=== PATIENT | female | born 1975 | race Caucasian/White ===

== ENCOUNTER → 2017-12-06 08:17 | Outpatient (CLI) | payer BC, SELFPAY ==
--- NOTE | 2017-12-06 08:21 | MM_ITS ---
MM Dig screening mamm BI w/CAD CAD Screening COMPARISON: Digital mammograms 12/01/2015 and 12/03/2016 INDICATION: There is a history of breast cancer patient maternal grandmother. TECHNIQUE: Standard CC and MLO images were obtained. R2 CAD reviewed. FINDINGS: Moderate diffuse fiber glandular densities are seen throughout both breasts and the findings are bilateral and symmetrical. However there is a possible developing asymmetric density deep within the left breast inner quadrant. Recommend the patient return for attempt at spot compression views and 90 degrees lateral view and ultrasound will be necessary as well for additional evaluation. There are few benign-appearing calcifications in each breast. There are couple stable benign-appearing densities in the left breast. IMPRESSION: Possible developing density left breast BI-RADS Category: 0 Need Additional Imaging Evaluation RECOMMENDED FOLLOW-UP: IMM - IMMEDIATE FOLLOW-UP RECOMMENDED (A letter has been sent to the patient regarding results of the study.)
== END ==
PROVIDERS: Family Provider Family Medicine; PCP Family Medicine; Visit Provider Obstetrics & Gynecology
DX: Z12.31 Encounter for screening mammogram for malignant neoplasm of breast (principal)
CPT/HCPCS: 77067

== ENCOUNTER → 2017-12-15 12:46 | Outpatient (CLI) | payer BC, SELFPAY ==
--- NOTE | 2017-12-15 14:02 | US_ITS ---
US breast LT complete MM Dig mamm DX unilat LT CAD INDICATION: Follow-up abnormal mammogram ORDERING PHYSICIAN: Shyam White MD PATIENT AGE: 42 years COMPARISON: 12/03/2016 and 12/06/2017 TECHNIQUE: Spot compression views and straight ML views of left breast ultrasound performed FINDINGS: The mammographic abnormality was D within the medial aspect of the left breast. Spot compression views do appear however this region. No discrete mass apparent. On the MLO view there is a small nodule deep in the left breast overlying the pectoralis muscle measuring 4 mm probably present on the previous exam. There is a small regular shaped density on the edge of the film in the deep aspect of the breast just inferior to this area. This may be present dating back to the sixth 6 exam and appears benign. Left breast ultrasound: At 2:00 there is an ill-defined 12 x 6 mm area of slight increased echogenicity possibly due to a lipoma. An additional small area of increased echogenicity is present at 8:00 measuring 4 mm. No suspicious nodules are evident. IMPRESSION: Probably benign mammographic abnormalities. Ultrasound shows a 12 mm slightly hyperechoic nodule 2:00 and probably does not correspond to the mammographic abnormality and may represent a lipoma. BI-RADS Category: 3 Benign Finding Short Term Follow-up RECOMMENDED FOLLOW-UP: 3M - 3 MONTH FOLLOWUP Recommend 3 month sonographic and possibly mammographic follow-up (A letter has been sent to the patient regarding results of the study.)
== END ==
PROVIDERS: Family Provider Family Medicine; PCP Family Medicine; Visit Provider Obstetrics & Gynecology
DX: R92.8 Other abnormal and inconclusive findings on diagnostic imaging of breast (principal)
CPT/HCPCS: 76641; 77065

== ENCOUNTER → 2018-03-08 14:14 | Outpatient (CLI) | payer BC, SELFPAY ==
--- NOTE | 2018-03-08 14:15 | US_ITS ---
MM Dig mamm DX unilat LT CAD, US breast LT complete INDICATION: Follow-up abnormal mammogram ORDERING PHYSICIAN: Shyam White MD PATIENT AGE: 42 years COMPARISON: None TECHNIQUE: Left mammogram along with left breast ultrasound FINDINGS: In the deep aspect of the left breast there is a benign-appearing nodule at 5 mm and may be due to a small lymph node with well circumscribed margins. There is some asymmetric density in the central aspect of the left breast appears to compress out as fibroglandular tissue.. There is a benign-appearing 4 mm nodule in the upper deep aspect of left breast unchanged Left breast ultrasound: 4 mm hyperechoic nodule at 8:00 and may be due to small lipoma. There is an isoechoic nodule at 2:00 measuring 9 x 10 x 5 mm and may also be due to a lipoma. There is enhanced through transmission of sound. This could also be due to a fibroadenoma. No malignant-appearing lesions are evident with no significant change. IMPRESSION: Overall stable appearance of the breasts. No change in the deep benign-appearing nodule of the left breast. A probably benign isoechoic to slightly hyperechoic nodule is once again noted at 2:00 and may be due to lipoma or fibroadenoma BI-RADS Category: 3 Probably Benign Finding Short Term Follow-up RECOMMENDED FOLLOW-UP: 6M - 6 MONTH FOLLOW-UP (A letter has been sent to the patient regarding results of the study.)
== END ==
PROVIDERS: PCP Obstetrics & Gynecology; Visit Provider Obstetrics & Gynecology
DX: R92.8 Other abnormal and inconclusive findings on diagnostic imaging of breast (principal)
CPT/HCPCS: 76641; 77065

== ENCOUNTER → 2018-05-12 13:11 | Outpatient (CLI) | payer BC, SELFPAY | PROVIDERS: Visit Provider Nurse Practitioner Family | DX: J02.9 Acute pharyngitis, unspecified (principal) ==

== ENCOUNTER → 2018-07-24 16:01 | Outpatient (CLI) | payer BC, SELFPAY ==
--- NOTE | 2018-07-24 16:14 | XR_ITS ---
XR scapula RT Ordering Physician: Sandra Celaya Patient Age: 42 years: Female HISTORY: ITS.REASON: RT SHOULDER PAIN Injury to the right shoulder with pain and swelling. TECHNIQUE: Right scapula 2 views COMPARISON :Of the study reviewed in conjunction with the right shoulder from today & FINDINGS The right scapula is intact with no fracture evident. Normal appearance to right scapula. The Y view and the second rather axillary view of the right labeled as internal rotation right shoulder reveal the humeral head to be intact AC joint right scapula right clavicle intact. Right lung clear underlying right ribs intact. IMPRESSION: Negative right scapula. Negative additional views right shoulder.
--- NOTE | 2018-07-24 16:14 | XR_ITS ---
XR shoulder RT min 2V Ordering Physician: Sandra Celaya Patient Age: 42 years: Female HISTORY: ITS.REASON: RT SHOULDER PAIN Injury to right shoulder with pain and swelling TECHNIQUE: 3 view right shoulder COMPARISON :] Scapula From today FINDINGS . No fracture nor dislocation. The humeral head and neck are intact. The glenohumeral relationships appear normal. Upper normal width of the AC joint on one of the view but overall AC joint appears satisfactory. [place] of right lung and upper right ribs unremarkable. Right scapula appears intact on this study as well as subsequent dedicated additional study for scapula. IMPRESSION: Right shoulder intact. No acute findings. Normal relationships Views of scapula unremarkable.
== END ==
PROVIDERS: PCP Nurse Practitioner Family; Visit Provider Nurse Practitioner Family
DX: M25.511 Pain in right shoulder (principal)
CPT/HCPCS: 73010; 73030

== ENCOUNTER → 2018-09-15 15:02 | Outpatient (CLI) | payer BC, SELFPAY ==
--- NOTE | 2018-09-15 15:06 | MM_ITS ---
MM Dig mamm DX unilat LT CAD, US breast LT complete INDICATION: 6 month follow-up abnormal mammogram ORDERING PHYSICIAN: Shyam White MD PATIENT AGE: 43 years COMPARISON: 03/08/2018, 12/15/2017, 12/06/2017 TECHNIQUE: Standard images performed with spot compression views and left breast ultrasound FINDINGS: There is average to dense fibroglandular tissue. A marker is placed along the medial aspect of left breast corresponding to a skin lesion with some increased density at that area. No malignant appearing mass or malignant appearing microcalcification is evident. Asymmetric density in the medial aspect of left breast is not redemonstrated on the cc view. Benign-appearing nodules present in this region on the MLO view and may be due to vascular overlap. Left breast ultrasound: At 2:00 there is a slightly hyperechoic nodule at 9 mm and could be due to a lipoma. Hyperechoic nodule noted at 8:00 measuring 5 mm unchanged and may be due to a lipoma.. No suspicious nodules are evident. Small nodes are present in the axilla. IMPRESSION: Benign findings, no significant change with no evidence of malignancy. Suggest 6 month mammographic and sonographic follow-up. BI-RADS Category: 2 Benign Finding(s) RECOMMENDED FOLLOW-UP: 6M - 6 MONTH FOLLOW-UP (A letter has been sent to the patient regarding results of the study.)
== END ==
PROVIDERS: PCP Family Medicine; Visit Provider Obstetrics & Gynecology
DX: R92.8 Other abnormal and inconclusive findings on diagnostic imaging of breast (principal)
CPT/HCPCS: 76641; 77065

== ENCOUNTER → 2019-04-04 14:37 | Outpatient (CLI) | payer BC, SELFPAY ==
--- NOTE | 2019-04-04 14:39 | MM_ITS ---
PROCEDURE: MM DIG MAMM BI DX W/CAD CLINICAL INDICATION: abnormal mammogram Follow-up abnormal mammogram COMPARISON: [facility] DIGITAL MAMM-SCREEN BILATERAL from 09/22/2010 [facility] DIG MAMM-SCREEN RICHARD from 12/01/2015 [facility] DIG MAMM-SCREEN RICHARD W/CAD from 12/03/2016 [facility] MM Dig screening mamm BI w/CAD from 12/06/2017 DXLT MM Dig mamm DX unilat LT CAD from 12/15/2017 DXLT MM Dig mamm DX unilat LT CAD from 03/08/2018 BREASTLT US breast LT complete from 09/15/2018 DXLT MM Dig mamm DX unilat LT CAD from 09/15/2018 US BREAST LT COMPLETE from 04/04/2019 TECHNIQUE: Standard CC and MLO images were obtained. R2 CAD reviewed. FINDINGS: There is dense fibroglandular tissue. This could obscure underlying breast lesions. Therefore, correlation with physical exam is above most importance. Right breast: No discrete mass or malignant-appearing microcalcification.. Benign-appearing calcifications. Left breast: Benign-appearing nodular opacity in the axillary region which may be due to small lymph node. No malignant appearing mass or malignant-appearing microcalcification. There asymmetry in the lateral aspect of the left breast. This may only be due to fibroglandular tissue but is more prominent than on the previous study therefore, would recommend the patient return for spot view of this area at no additional charge as well as an XCC view Left breast ultrasound: In the outer aspect at 2 o'clock there is a slightly hypoechoic nodular area at 8 mm wider than tall and may be due to fibroglandular tissue as this did appear to elongate. No malignant appearing mass or malignant-appearing microcalcification. Small area of increased echogenicity is present at 8 o'clock is well at 4 mm and may be due to small lipoma. Small nodes present in the axilla. IMPRESSION: Findings are probably benign. Suggest the patient return at no additional charge for spot views of the lateral left breast on CC view and for an XCC view due to the area of asymmetry. Addended BI-RADS will be given at that time. BI-RAD Category: 0 Need Additional Imaging Evaluation FOLLOW-UP: IMM Immediate Follow-up Recommended (A letter has been sent to the patient regarding results of the study.) Dictated by: Morgan Reyez MD 04/10/2019 10:20 Electronically signed by Morgan Reyez MD in [place] 04/10/2019 10:20
== END ==
PROVIDERS: PCP Family Medicine; Visit Provider Obstetrics & Gynecology
DX: R92.8 Other abnormal and inconclusive findings on diagnostic imaging of breast (principal)
CPT/HCPCS: 76641; 77066

== ENCOUNTER → 2019-05-04 15:07 | Outpatient (CLI) | payer BC, SELFPAY | PROVIDERS: PCP Family Medicine; Visit Provider Obstetrics & Gynecology | DX: R92.8 Other abnormal and inconclusive findings on diagnostic imaging of breast (principal) ==

== ENCOUNTER → 2020-04-11 14:46 | Outpatient (CLI) | payer BC, SELFPAY ==
--- NOTE | 2020-04-11 14:46 | MM_ITS ---
PROCEDURE: MM DIG SCREENING MAMM BI W/CAD Digital Breast Tomosynthesis Included CLINICAL INDICATION: Routine Screening Mammogram There is a history of breast cancer in the patient's maternal grandmother. The patient currently is on estrogen. COMPARISON: MG DXLT MM Dig mamm DX unilat LT CAD from 12/15/2017 MG DXLT MM Dig mamm DX unilat LT CAD from 03/08/2018 MG DXLT MM Dig mamm DX unilat LT CAD from 09/15/2018 MG MM DIG MAMM BI DX W/CAD from 04/04/2019 TECHNIQUE: Standard CC and MLO images and 3D Tomosynthesis was obtained. R2 CAD reviewed. FINDINGS: Mild to moderate diffuse fibroglandular densities are seen in both breast. There is a mole marker left breast. There are few benign-appearing microcalcifications in each breast. There has been some mild fatty involution of the breast parenchyma since the previous studies. There is no suspicious lesion and no suspicious microcalcifications. IMPRESSION: Mild to moderate breast density with no suspicious lesions seen BI-RAD Category: 2 Benign Finding(s) FOLLOW-UP: 1YR 1 Year Follow-up (A letter has been sent to the patient regarding results of the study.) Dictated by: Dr. Ismael Felder MD 04/15/2020 12:27 Dr. Ismael Felder MD in [place] 04/15/2020 12:27
== END ==
PROVIDERS: PCP Family Medicine; Visit Provider Obstetrics & Gynecology
DX: Z12.31 Encounter for screening mammogram for malignant neoplasm of breast (principal)
CPT/HCPCS: 77063; 77067

== ENCOUNTER → 2020-04-26 11:30 | Outpatient (CLI) | payer BC, SELFPAY ==
[2020-04-27 09:20] LABS: Covid-19 Nasal PCR Sendout UK Not Detected
== END ==
PROVIDERS: PCP Family Medicine; Visit Provider Family Medicine
DX: Z03.818 Encounter for observation for suspected exposure to other biological agents ruled out (principal)
CPT/HCPCS: U0003

== ENCOUNTER 2020-05-22 08:59 | Emergency (ER) | payer BC, SELFPAY ==
[2020-05-22 09:05] VITALS: BP 129/74; PULSE 72; RESP 18; TEMP 37; O2SAT 99; BMI 25.4
--- NOTE | 2020-05-22 09:28 | HMH.EDUTC ---
[facility] [place] Clinical Impression: Close exposure to COVID-19 virus Disposition: Home, Self-Care Condition on Discharge: Good Instructions: DI for COVID-19 (Suspected or Confirmed ), COVID-19 Viral Test, Preventing the Spread of Coronavirus Discharge Instructions, COVID-19: Testing and Tracing Additional Instructions: *Monitor Temp, Over the counter Motrin or Tylenol as directed/as needed Tylenol every 4 hours and Motrin every 6 hours (as long as your family doctor has told you that you can take it) for fever or pain. and straight to ER if unable to lower temp less than 101.0 after medication given *Warm salt water gargles may help to soothe the throat *Throat Lozenges *Warm fluids like tea with honey may help to soothe the throat *Sleep elevated *Humidifier/Vaporizer *Flonase 2 sprays in each nostril daily but be aware that it may take 2-3 days before you notice improvement Follow up IMMEDIATELY for new or worsening symptoms or no Noticeable improvement over the next 48-72 hours. 911 for difficulty breathing or swallowing You were tested for today for COVID19 your test result should be back in the next 24-48 hours, you may call to the [facility] to see if your test results are back in the next 48 hours [phone] [facility] hours are 9am-9pm You was given a handout with instructions for Self Quarantine and Self isolation for while you wait on test results and what to do if they are positive If you are positive the Health Dept will be contacting you also Prescriptions: Fluticasone Propionate [Flonase 50mcg nasal spray 16gm] 1 spr NS DAILY #1 bottle Transmission Status: Pending to [facility] Promethazine HCl [Phenergan 12.5mg tablet] 12.5 mg PO Q6H PRN #6 tab PRN Reason: Nausea Transmission Status: Pending to [facility] Referrals: Serge Dhillon MD [Primary Care Provider] - As needed Forms: Work/School Release Time of Disposition: 09:37 Medical Decision Making - Gold Inquiry Pt receiving controlled substance: No Gold was queried for this patient: No Vital Signs: 05/22/20 09:05 Temperature 98.6 F Temperature Source Oral Pulse Rate [Right Brachial] 72 Respiratory Rate 18 Blood Pressure [Right Arm] 129/74 Blood Pressure Mean [Right Arm] 92 Blood Pressure Source [Right Arm] Automatic Cuff Blood Pressure Position [Right Arm] Sitting 02 Sat by Pulse Oximetry 99 Oxygen Delivery Method Room Air Orders (Tests/Meds): ORDERS Category Date Time Status Covid-19 Nasal PCR ([facility]) Routine Lab 05/22/20 09:08 Ordered [facility] UTC HPI - General Stated complaint: exposure and symtoms/covid Time Seen by Provider: 05/22/20 09:30 Mode of Arrival: Ambulatory Source of Information: Patient Limitations: No Limitations Description of Symptoms (Recalled from Triage Doc. by RN): PATIENT REQUESTING COVID TEST D/T EXPOSURE LAST TUESDAY. C/O RUNNY NOSE, HEADACHE, DIARRHEA, AND FATIGUE SINCE YESTERDAY HEENT Symptoms (Recalled from RN notes): Yes Resp Symptoms (Recalled from RN notes): No Skin Symptoms (Recalled from RN notes): No MS Symptoms (Recalled from RN notes): No Functional Status (Recalled from RN notes): WNL - History of Present Illness Provider Complaint: Patient states that she was exposed to COVID from coworker on Tue and coworker tested positive on Tuesday States that around Tuesday she started having runny nose, body aches and not feeling well then yesterday she had upset stomach headache and started having diarrhea. States that today she is still feeling bad and having some nausea - Related Data Home Medications Medication Instructions Recorded Confirmed montelukast 10 mg tablet 10 mg PO QPM 10/21/17 04/28/19 Previous Rx's Medication Instructions Recorded estradiol 1 mg tablet 1 mg PO DAILY 30 Days #90 tab 12/13/19 Fluticasone Propionate [Flonase 1 spr NS DAILY #1 bottle 05/22/20 50mcg nasal spray 16gm] Promethazine HCl [Phenergan 12.5mg 12.5 mg PO Q6H PRN #6 tab 05/22/20 tablet
[2020-05-22 09:40] VITALS: BP 129/74; PULSE 72; RESP 18; TEMP 37; O2SAT 99
== END 2020-05-22 09:44 | disposition home or self-care (01) ==
PROVIDERS: Emergency Provider Nurse Practitioner; PCP Family Medicine
DX: Z20.828 Contact with and (suspected) exposure to other viral communicable diseases (principal); Z87.442 Personal history of urinary calculi; Z91.040 Latex allergy status
CPT/HCPCS: 99201; U0003

== ENCOUNTER → 2020-09-10 10:34 | Outpatient (CLI) | payer BC, SELFPAY ==
--- NOTE | 2020-09-10 10:38 | XR_ITS ---
PROCEDURE: XR FOOT RT MIN 3V CLINICAL INDICATION: RT FOOT PAIN, FLAT FOOT(PES PLANUS)(AQUIRED), RT FOOT COMPARISON: No exams were available for comparison FINDINGS: No fracture or dislocation. No lytic or blastic change. There is normal mineralization. The joint spaces are well-preserved. No significant degenerative/arthritic changes. No erosive changes evident. Other findings:None. IMPRESSION: No acute findings. Dictated by: Mrogan Reyez MD 09/10/2020 15:22 Morgan Reyez MD in [place] 09/10/2020 15:22
== END ==
PROVIDERS: PCP Nurse Practitioner Family; Visit Provider Nurse Practitioner Family
DX: M79.671 Pain in right foot (principal); M21.41 Flat foot [pes planus] (acquired), right foot
CPT/HCPCS: 73630

== ENCOUNTER → 2021-05-08 13:13 | Outpatient (CLI) | payer BC, SELFPAY ==
--- NOTE | 2021-05-08 13:14 | MM_ITS ---
PROCEDURE INFORMATION: Exam: MG Bilateral Screening 3D Mammography Exam date and time: 05/08/2021 1:14 PM Age: 45 years old Clinical indication: Encounter for screening mammogram for malignant neoplasm of breast TECHNIQUE: Imaging protocol: Bilateral screening tomosynthesis and 2D mammography including computer-aided detection (CAD) when performed. COMPARISON: 1. MG MM DIG SCREENING MAMM BI W/CAD 04/11/2020 3:01 PM 2. MG MM DIG MAMM BI DX W/CAD 04/04/2019 2:54 PM FINDINGS: MAMMOGRAPHY: Breast composition: The breast tissue is composed of scattered areas of fibroglandular density. Mass: None. Architectural distortion: None. Calcifications: No suspicious calcifications. Asymmetric density: None. Skin thickening: None. Axillary adenopathy: None. IMPRESSION: No mammographic evidence of malignancy. Annual screening is recommended unless otherwise clinically indicated. ASSESSMENT: BI-RADS Category 1: Negative
== END ==
PROVIDERS: PCP Family Medicine; Visit Provider Obstetrics & Gynecology
DX: Z12.31 Encounter for screening mammogram for malignant neoplasm of breast (principal)
CPT/HCPCS: 77063; 77067

== ENCOUNTER → 2021-06-03 15:36 | Outpatient (CLI) | payer BC, SELFPAY | PROVIDERS: Visit Provider Nurse Practitioner | DX: U07.1 COVID-19 (principal) | CPT/HCPCS: C9803; U0003; U0005 ==

== ENCOUNTER 2021-06-23 09:22 | Emergency (ER) | payer BC, SELFPAY ==
[2021-06-23 09:30] VITALS: BP 114/69; PULSE 84; RESP 18; TEMP 36.6; O2SAT 98; BMI 26.7
--- NOTE | 2021-06-23 09:59 | HMH.EDUTC ---
[facility] – [place] Disposition Clinical Impression: Sinusitis Qualifiers: Sinusitis location: unspecified location Chronicity: unspecified Qualified Code(s): J32.9 - Chronic sinusitis, unspecified Nausea & vomiting Qualifiers: Vomiting type: unspecified Qualified Code(s): R11.2 - Nausea with vomiting, unspecified Disposition: Home, Self-Care Condition on Discharge: Good Instructions: Sinusitis, DI for Sinusitis, DI for Nausea -- Adult, Nausea and Vomiting-Adult Additional Instructions: *Monitor Temp, Over the counter Motrin or Tylenol as directed/as needed Tylenol every 4 hours and Motrin every 6 hours (as long as your family doctor has told you that you can take it) for fever or pain. and straight to ER if unable to lower temp less than 101.0 after medication given *Warm salt water gargles may help to soothe the throat *Throat Lozenges *Warm fluids like tea with honey may help to soothe the throat *Sleep elevated *Humidifier/Vaporizer Take medication as prescribed Return if needed Follow up IMMEDIATELY for new or worsening symptoms or no Noticeable improvement over the next 48-72 hours. 911 for difficulty breathing or swallowing Prescriptions: Doxycycline Monohydrate [Doxycycline [place] 100mg Tab] 100 mg PO BID 7 Days #14 tab Transmission Status: Received by [facility] methylPREDNISolone [Medrol 4mg tab] 4 mg PO DIRECTED #21 tab Transmission Status: Received by [facility] Ondansetron [Zofran 4mg ODT] 4 mg PO TIDP PRN #9 tab PRN Reason: Nausea Transmission Status: Received by [facility] Referrals: Serge Dhillon MD [Primary Care Provider] - As needed Time of Disposition: 10:23 Medical Decision Making - Gold Inquiry Pt receiving controlled substance: No Gold was queried for this patient: No Vital Signs: 06/23/21 09:30 Temperature 97.8 F Temperature Source Oral Pulse Rate [Right Brachial] 84 Respiratory Rate 18 Blood Pressure [Right Arm] 114/69 Blood Pressure Mean [Right Arm] 84 Blood Pressure Source [Right Arm] Automatic Cuff Blood Pressure Position [Right Arm] Sitting 02 Sat by Pulse Oximetry 98 Oxygen Delivery Method Room Air Orders (Tests/Meds): ED MEDICATIONS Discontinued Medications Generic Name Dose Route Start Last Admin Trade Name Freq PRN Reason Stop Dose Admin Ondansetron HCl 4 mg 06/23/21 10:09 06/23/21 10:11 Ondansetron 4mg Odt SL 06/23/21 10:10 4 mg ONCE ONE Administration Medical Decision Narrative: Patient states that heriberto feels much better after medication for nausea [facility] [place] HPI - General Stated complaint: sore throat,vomiting,diarrhea Time Seen by Provider: 06/23/21 09:59 Mode of Arrival: Ambulatory Source of Information: Patient Limitations: No Limitations Description of Symptoms (Recalled from Triage Doc. by RN): PATIENT C/O HEADACHE, VOMITING, STOMACH PAIN, SORE THROAT, SINUS DRAINAGE, FATIGUE, AND POPPING IN EAR SINCE TUESDAY NIGHT. HAD COVID ON 06/03 HEENT Symptoms (Recalled from RN notes): Yes Resp Symptoms (Recalled from RN notes): No Skin Symptoms (Recalled from RN notes): No MS Symptoms (Recalled from RN notes): No Functional Status (Recalled from RN notes): WNL - History of Present Illness Provider Complaint: Patient state that she had COVID around the end of May States that she was doing ok but she has been having sinus pain and pressure like feeling behind her eyes for over a week State that last night she started having nausea and vomiting and felt like her stomach was upset and churning States that this morning she was still having nausea and feeling of fullness in her sinuses and ears so she came in - Related Data Home Medications Medication Instructions Recorded Confirmed montelukast 10 mg tablet 10 mg PO QPM 10/21/17 06/23/21 Sertraline HCl [Zoloft] 50 mg PO DAILY 06/23/21 06/23/21 estradioL [Estradiol] 1 mg PO DAILY 06/23/21 06/23/21 Previous Rx's Medication Instructions Recorded Doxycycli
[2021-06-23 10:29] VITALS: BP 114/69; PULSE 84; RESP 18; TEMP 36.6; O2SAT 98
[2021-06-23 10:29] LABS: Strep Scrn Group A (Rapid) Negative (Negative)
== END 2021-06-23 10:36 | disposition home or self-care (01) ==
PROVIDERS: Emergency Provider Nurse Practitioner; PCP Family Medicine
DX: J32.9 Chronic sinusitis, unspecified (principal)
CPT/HCPCS: 87430; 99202; G0463

== ENCOUNTER 2021-08-02 10:04 | Emergency (ER) | payer BC, SELFPAY ==
[2021-08-02 10:35] VITALS: BP 113/57; PULSE 76; RESP 19; TEMP 36.8; O2SAT 97; BMI 26.7
[2021-08-02 10:43] LABS: UTC Strep Screen (Rapid) Positive (Negative)
--- NOTE | 2021-08-02 12:13 | HMH.EDUTC ---
[facility] [place]ression: Strep throat Disposition: Home, Self-Care Condition on Discharge: Good Instructions: Strep Throat, DI for Strep Throat Additional Instructions: Drink plenty of fluids. Take tylenol or ibuprofen for pain or fever. Take the medications as directed. Follow up with your regular doctor. GO TO THE ER FOR ANY WORSENING SYMPTOMS Throw your tooth brush away and get a new one. Prescriptions: Ondansetron [Zofran 4mg ODT] 4 mg PO Q8HP PRN #20 tab PRN Reason: Nausea Transmission Status: Received by [facility] Amoxicillin [Amoxicillin 500mg Tab] 500 mg PO TID 10 Days #30 tab Transmission Status: Received by [facility] methylPREDNISolone [Medrol] 4 mg PO DIRECTED 6 Days #21 packet Transmission Status: Received by [facility] Referrals: Serge Dhillon MD [Primary Care Provider] - Forms: Work/School Release Time of Disposition: 12:25 Medical Decision Making - Medical Records Medical records reviewed: No: I reviewed the patient's medical records. - Gold Inquiry Pt receiving controlled substance: No Vital Signs: 08/02/21 10:35 08/02/21 12:31 Temperature 98.2 F 98.2 F Temperature Source Oral Pulse Rate 76 Pulse Rate [Left] 76 Respiratory Rate 19 19 Blood Pressure 113/57 L Blood Pressure [Right Arm] 113/57 L Blood Pressure Mean [Right Arm] 75 02 Sat by Pulse Oximetry 97 - Lab Data Lab Results 08/02/21 10:37: Strep Scn Rapid Clinic Positive [facility] [place] - General Stated complaint: ear/throat pain Time Seen by Provider: 08/02/21 12:13 Mode of Arrival: Ambulatory Source of Information: Patient Limitations: No Limitations Description of Symptoms (Recalled from Triage Doc. by RN): pt c/o bilateral ear aches and a sore throat x2 days. HEENT Symptoms (Recalled from RN notes): Yes Resp Symptoms (Recalled from RN notes): No Skin Symptoms (Recalled from RN notes): No MS Symptoms (Recalled from RN notes): No Functional Status (Recalled from RN notes): wnl - History of Present Illness Provider Complaint: She states that she has had a sore throat and right ear pain for the past 2 days. - Related Data Home Medications Medication Instructions Recorded Confirmed montelukast 10 mg tablet 10 mg PO QPM 10/21/17 06/23/21 Sertraline HCl [Zoloft] 50 mg PO DAILY 06/23/21 06/23/21 estradioL [Estradiol] 1 mg PO DAILY 06/23/21 06/23/21 Previous Rx's Medication Instructions Recorded Doxycycline Monohydrate 100 mg PO BID 7 Days #14 tab 06/23/21 [Doxycycline [place] 100mg Tab] Ondansetron [Zofran 4mg ODT] 4 mg PO TIDP PRN #9 tab 06/23/21 methylPREDNISolone [Medrol 4mg 4 mg PO DIRECTED #21 tab 06/23/21 tab] Amoxicillin [Amoxicillin 500mg Tab] 500 mg PO TID 10 Days #30 tab 08/02/21 Ondansetron [Zofran 4mg ODT] 4 mg PO Q8HP PRN #20 tab 08/02/21 methylPREDNISolone [Medrol] 4 mg PO DIRECTED 6 Days #21 08/02/21 packet Allergies Allergy/AdvReac Type Severity Reaction Status Date / Time latex Allergy Intermediate RASH, Verified 12/18/20 10:28 BLISTERS codeine [CODEINE] Allergy Mild Verified 12/18/20 10:28 STRAWBERRIES (FOOD) Allergy Mild I-ITCHING Uncoded 12/18/20 10:28 - Worker's Comp Is this a Worker's Comp case?: No [facility] History - Hepatitis A Screen Drug use history?: No High risk sexual behaviors?: No History of sexually transmitted infection?: No Currently employed?: No Childcare worker?: No Do you have indoor plumbing?: Yes Do you have electricity?: Yes Attestation statement:: This patient has been screened for Hepatitis A risk factors. I have reviewed the patient's past medical history: Yes Medical History: Reports:: Kidney Stones Comment: kidney stones,Detrusor dyssynergia Other Surgeries: Yes: , Hysterectomy-Total, Other Amputation: No Fractures: No Comment: 1992-Alexander teeth. 1996- Primary . 2011- LAV[facility],BSO - Social History Smoking Statu
[2021-08-02 12:31] VITALS: BP 113/57; PULSE 76; RESP 19; TEMP 36.8
== END 2021-08-02 12:32 | disposition home or self-care (01) ==
PROVIDERS: Emergency Provider Nurse Practitioner Family; PCP Family Medicine
DX: J02.0 Streptococcal pharyngitis (principal)
CPT/HCPCS: 87880; 99202; G0463

== ENCOUNTER 2021-09-24 09:05 | Emergency (ER) | payer BC, SELFPAY ==
[2021-09-24 09:06] VITALS: BP 127/69; PULSE 82; RESP 16; TEMP 36.8; O2SAT 96; BMI 28.0
--- NOTE | 2021-09-24 09:39 | HMH.EDUTC ---
[facility] – [place], [place] Disposition Clinical Impression: Influenza Disposition: Home, Self-Care Condition on Discharge: Good Instructions: Influenza, DI for Influenza -- Adult, Oseltamivir Additional Instructions: ? Start Tamiflu today if you are going to take it. Discussed risk and possible benefits. ? Lots of rest ? Increase Fluids water, Gatorade, powerade, pedialyte,if /toddler/child ? Alternate Tylenol and / or ibuprofen as discussed for fever, aches, chills Follow up IMMEDIATELY with your family doctor for new or worsening Symptoms OR no noticeable improvement over the next 48-72 hours, 911 for difficulty or breathing ? You or your child area contagious until no fever, aches, chills for 24 hours with medication for symptoms ? Help Prevent the spread of influenza: ? Wash your hands often. Use soap and water. Wash your hands after you use the bathroom, change a child's diapers, or sneeze. Wash your hands before you prepare or eat food. Use gel hand cleanser that has 60% alcohol, when soap and water are not available. Do not touch your eyes, nose, or mouth unless you have washed your hands first. ? Cover your mouth when you sneeze or cough. Cough into a tissue or the bend of your arm. If you use a tissue, throw it away immediately and wash your hands. ? Clean shared items with a germ-killing pin cleaner. Clean table surfaces, doorknobs, and light switches. Do not share towels, silverware, and dishes with people who are sick. Wash bed sheets, towels, silverware, and dishes with soap and water. ? Wear a mask over your mouth and nose if you are sick. The face mask may help protect others from becoming infected with the flu. Wear the mask when in common areas of your home or if you seek care with a healthcare provider. ? Stay away from others if you are sick. Stay at home until 24 hours after your fever and symptoms are gone. Prescriptions: Oseltamivir Phosphate [Tamiflu 75mg Capsule] 75 mg PO BID #10 cap Transmission Status: Pending to [facility] Ondansetron [Zofran 4mg ODT] 4 mg PO TIDP PRN #20 tab PRN Reason: Nausea Transmission Status: Pending to [facility] Referrals: Abe Brito MD [Primary Care Provider] - As needed Forms: Work/School Release Time of Disposition: 10:06 Medical Decision Making - Gold Inquiry Pt receiving controlled substance: No Gold was queried for this patient: No Vital Signs: 09/24/21 09:06 Temperature 98.2 F Temperature Source Oral Pulse Rate [Left Radial] 82 Respiratory Rate 16 Blood Pressure [Right Arm] 127/69 Blood Pressure Mean [Right Arm] 88 Blood Pressure Source [Right Arm] Automatic Cuff Blood Pressure Position [Right Arm] Sitting 02 Sat by Pulse Oximetry 96 Oxygen Delivery Method Room Air - Lab Data Lab results reviewed: Yes: I reviewed the patient's lab results. Lab Results 09/24/21 09:26: Group A Strep Rapid Negative 09/24/21 09:33: Influenza Type A Ag Positive A, Influenza Type B Ag Negative Orders (Tests/Meds): ORDERS Category Date Time Status Strep Screen Confirmation Stat Micro 09/24/21 09:26 Received [facility] – [place], [place] HPI - General Stated complaint: sore throat, vomiting Time Seen by Provider: 09/24/21 09:43 Mode of Arrival: Ambulatory Source of Information: Patient Limitations: No Limitations Description of Symptoms (Recalled from Triage Doc. by RN): SORE THROAT, HURTS TO SWALLOW, NAUSEA, VOMITING, HEADACHE, BODY ACHE BEGAN YESTERDAY HEENT Symptoms (Recalled from RN notes): Yes Resp Symptoms (Recalled from RN notes): No Skin Symptoms (Recalled from RN notes): No MS Symptoms (Recalled from RN notes): Yes Functional Status (Recalled from RN notes): N/A - History of Present Illness Provider Complaint: Patient states that she started feeling bad last night states that she has been having body aches, chills, sore throat and had some N/V this morning States that she overall just doesnt feel well so she came in to get checked - Related Data Home Medications
[2021-09-24 09:47] LABS: UTC Influenza A Antigen Positive (Negative); UTC Influenza B Antigen Negative (Negative)
[2021-09-24 09:52] LABS: Strep Scrn Group A (Rapid) Negative (Negative)
[2021-09-24 10:17] VITALS: BP 127/69; PULSE 82; RESP 16; TEMP 36.8; O2SAT 97
== END 2021-09-24 10:18 | disposition home or self-care (01) ==
PROVIDERS: Emergency Provider Nurse Practitioner; PCP Family Medicine
DX: J10.1 Influenza due to other identified influenza virus with other respiratory manifestations (principal)
CPT/HCPCS: 87430; 87804; 99212; G0463

== ENCOUNTER 2021-12-22 09:14 | Emergency (ER) | payer BC, SELFPAY ==
[2021-12-22 09:40] VITALS: BP 105/57; PULSE 102; RESP 21; TEMP 37.5; O2SAT 96; BMI 27.8
[2021-12-22 09:54] LABS: UTC Strep Screen (Rapid) Negative (Negative)
--- NOTE | 2021-12-22 10:03 | HMH.EDUTC ---
[facility] [place] Clinical Impression: Pharyngitis Qualifiers: Pharyngitis/tonsillitis etiology: unspecified etiology Qualified Code(s): J02.9 - Acute pharyngitis, unspecified Disposition: Home, Self-Care Condition on Discharge: Good Instructions: DI for Viral Syndrome, DI for COVID-19 (Suspected or Confirmed ), Preventing the Spread of Coronavirus Discharge Instructions Additional Instructions: *Monitor Temp, Over the counter Motrin or Tylenol as directed/as needed Tylenol every 4 hours and Motrin every 6 hours (as long as your family doctor has told you that you can take it) for fever or pain. and straight to ER if unable to lower temp less than 101.0 after medication given *Warm salt water gargles may help to soothe the throat *Throat Lozenges *Warm fluids like tea with honey may help to soothe the throat *Sleep elevated *Humidifier/Vaporizer Your throat swab was sent for culture. Those results are typically sent to your primary care. Be sure to follow up in 2-3 days with your family doctor/primary care physician if no improvement so they can review those result and treat if necessary. If you don?t have a primary care doctor, I recommend you get one but in the mean time, you will have to return to a walk in clinic Follow up IMMEDIATELY for new or worsening symptoms or no Noticeable improvement over the next 48-72 hours. 911 for difficulty breathing or swallowing You were tested for today for COVID19 your test result should be back in the next 24-48 hours, you may check your results on the [facility] My Health Portal Make sure to take your Vitamins Vit. C Vit D and Zinc if you can take them Prescriptions: Cefdinir [Omnicef 300mg Capsule] 300 mg PO BID #20 cap Transmission Status: Pending to [facility] Ondansetron [Zofran 4mg ODT] 4 mg PO TIDP PRN #10 tab PRN Reason: Nausea Transmission Status: Pending to [facility] Referrals: Ghassan Rivera MD [Primary Care Provider] - As needed Time of Disposition: 10:08 Medical Decision Making - Gold Inquiry Pt receiving controlled substance: No Gold was queried for this patient: No Vital Signs: 12/22/21 09:40 Temperature 99.5 F Temperature Source Oral Pulse Rate [Left Brachial] 102 H Respiratory Rate 21 Blood Pressure [Left Arm] 105/57 L Blood Pressure Mean [Left Arm] 73 Blood Pressure Source [Left Arm] Automatic Cuff Blood Pressure Position [Left Arm] Sitting 02 Sat by Pulse Oximetry 96 Oxygen Delivery Method Room Air - Lab Data Lab results reviewed: Yes: I reviewed the patient's lab results. Lab Results 12/22/21 09:33: Strep Scn Rapid Clinic Negative Orders (Tests/Meds): ORDERS Category Date Time Status Covid-19 Nasal PCR ([facility]) Routine Lab 12/22/21 09:35 Ordered Strep Screen Confirmation Stat Micro 12/22/21 09:33 Received Medical Decision Narrative: Patient states that she has taken zofran in the past without complications or reactions [facility] [place] General Stated complaint: sore throat, vomiting, sinus congestion Time Seen by Provider: 12/22/21 10:03 Mode of Arrival: Ambulatory Source of Information: Patient Limitations: No Limitations Description of Symptoms (Recalled from Triage Doc. by RN): PATIENT C/O SORE THROAT, SINUS PRESSURE, EAR PAIN, VOMITING, AND BODY ACHES SINCE YESTERDAY. RECENTLY EXPOSED TO COVID HEENT Symptoms (Recalled from RN notes): Yes Resp Symptoms (Recalled from RN notes): Yes Skin Symptoms (Recalled from RN notes): No MS Symptoms (Recalled from RN notes): No Functional Status (Recalled from RN notes): WNL - History of Present Illness Provider Complaint: Patient states that her daughter and boyfriend had COVID last week State that she is having sore throat, sinus congestion, pain and pressure in both ears and N/V along with body aches States that she felt like she may have strep throat but also wanted to get tested for COVID so she came in - Related Data Home Medications Medication Ins
[2021-12-22 10:10] VITALS: BP 105/57; PULSE 102; RESP 21; TEMP 37.5; O2SAT 96
== END 2021-12-22 10:23 | disposition home or self-care (01) ==
PROVIDERS: Emergency Provider Nurse Practitioner; PCP Internal Medicine Adolescent Medicine
DX: J02.9 Acute pharyngitis, unspecified (principal); R11.10 Vomiting, unspecified; Z20.822 Contact with and (suspected) exposure to COVID-19
CPT/HCPCS: 87880; 99212; C9803; G0463; U0003; U0005

== ENCOUNTER 2022-05-22 09:37 | Emergency (ER) | payer BC, SELFPAY ==
[2022-05-22 10:01] VITALS: BP 119/62; PULSE 83; RESP 16; TEMP 36.9; O2SAT 97; BMI 27.1
[2022-05-22 10:11] LABS: UTC Strep Screen (Rapid) Negative (Negative)
--- NOTE | 2022-05-22 10:45 | EXP.UTC ---
Discharge Plan Disposition Patient Disposition: Home, Self-Care Condition: Good Prescriptions Prescriptions: New polymyxin B sulf-trimethoprim [Polytrim] 10,000 unit- 1 mg/mL drops 1 drp ophthalmic (eye) Q3H 7 Days Qty: 10 0RF Rx Instructions: while awake; do not exceed 6 doses in 24 hours asbtrcabxbzoauh-rknewpdqf-BH [Bromfed DM] 2-30-10 mg/5 mL syrup 10 ml PO Q6H PRN (Reason: cold symptoms) Qty: 118 0RF No Action montelukast [Singulair] 10 mg tablet 10 mg PO QPM estradiol 1 mg tablet 1 mg PO DAILY Qty: 30 11RF sertraline [Zoloft] 50 mg tablet 50 mg PO DAILY Qty: 30 10RF Referrals Follow up/Referrals: Serge Young MD [Primary Care Provider] - See instructions Clinical Impressions Clinical Impression: Acute conjunctivitis of left eye, Acute upper respiratory infection Instructions Patient Instructions: DI for Conjunctivitis, DI for Viral Upper Respiratory Infection -- Adult Discharge ED Provider: Ofelia Diaz [facility] General Stated complaint: left eye runny and sore,sore throat Mode of Arrival: Ambulatory Source of Information: Patient Limitations: No Limitations Time Seen by Provider: 05/22/22 10:45 Description of Symptoms (Recalled from Triage Doc. by RN): pt comes in with c/o sore throat, nasal drainage that began last night. left eye itching and drainage began tuesday HE Symptoms (Recalled from RN notes): Yes Resp Symptoms (Recalled from RN notes): No Skin Symptoms (Recalled from RN notes): No MS Symptoms (Recalled from RN notes): No Functional Status (Recalled from RN notes): n/a Related Data Home Medications Medication Instructions Recorded Confirmed montelukast 10 mg tablet 10 mg PO QPM Allergy symptoms 10/21/17 12/22/21 (Singulair) Previous Rx's Medication Instructions Recorded estradiol 1 mg tablet 1 mg PO DAILY MENOPAUSE #30 tabs 01/07/22 sertraline 50 mg tablet (Zoloft) 50 mg PO DAILY #30 tabs 05/18/22 lbacxwduzulenyl-jhwofychtaejziv-AM 10 ml PO Q6H PRN cold symptoms 05/22/22 2 mg-30 mg-10 mg/5 mL oral syrup #118 mL (Bromfed DM) polymyxin B sulfate 10,000 1 drp ophthalmic (eye) Q3H 7 days 05/22/22 unit-trimethoprim 1 mg/mL eye #10 mL drops (Polytrim) Allergies Allergy/AdvReac Type Severity Reaction Status Date / Time latex Allergy Intermediate RASH, Verified 05/22/22 10:03 BLISTERS codeine [CODEINE] Allergy Mild Verified 05/22/22 10:03 strawberry Allergy Verified 05/22/22 10:03 Worker's Comp Is this a Worker's Comp case?: No [facility] Disclaimer: The information contained in this section may have been updated after the patient was seen, as this information can be updated by other users. Social History Smoking Status: Never smoker alcohol intake: never substance use type: denies use current occupational status: employed Travel in the last 8 weeks: None household members: family housing: house ROS Obtained: Yes All systems reviewed & no additional complaints except as documented Constitutional Constitutional: Reports system reviewed and no additional complaints, except as documented Eyes Eyes: Reports eye discharge, Reports irritation, Reports sensitivity to light and Reports eye pain ENT Ears, Nose, Mouth, and Throat: Reports otalgia, Reports nasal discharge, Reports odynophagia, Reports post nasal drip and Reports sore throat Cardiovascular Cardiovascular: Reports system reviewed and no additional complaints, except as documented Respiratory Respiratory: Reports cough and Reports non-productive cough Gastrointestinal Gastrointestingal: Reports odynophagia Genitourinary Female Genitourinary: Reports system reviewed and no additional complaints, except as documented Integumentary/Breasts Skin/Breast: Reports system reviewed and no additional complaints, except as documented Neurologic Neurologic: Reports system reviewed and no additional complaints, except as documented Endocrine Endoc
[2022-05-22 10:58] VITALS: BP 119/62; PULSE 83; RESP 16; TEMP 36.9
== END 2022-05-22 11:03 | disposition home or self-care (01) ==
PROVIDERS: Emergency Provider Nurse Practitioner Family; PCP Internal Medicine Adolescent Medicine
DX: H10.32 Unspecified acute conjunctivitis, left eye (principal); J06.9 Acute upper respiratory infection, unspecified
CPT/HCPCS: 87880; 99212; G0463

== ENCOUNTER → 2022-05-25 15:35 | Outpatient (CLI) | payer BC, SELFPAY ==
--- NOTE | 2022-05-25 15:35 | MM_ITS ---
PROCEDURE INFORMATION: Exam: MG Bilateral Screening 3D Mammography Exam date and time: 05/25/2022 3:30 PM Age: 46 years old Clinical indication: Screening. Her maternal grandmother had breast cancer. TECHNIQUE: Imaging protocol: Bilateral Screening tomosynthesis and 2D mammography including computer-aided detection (CAD) when performed. COMPARISON: 1. MG MM DIG SCREENING MAMM BI W/CAD 05/08/2021 1:26 PM 2. MG MM DIG SCREENING MAMM BI W/CAD 04/11/2020 3:01 PM 3. MG MM DIG MAMM BI DX W/CAD 04/04/2019 2:54 PM 4. MG DXLT MM Dig mamm DX unilat LT CAD 09/15/2018 3:23 PM FINDINGS: MAMMOGRAPHY: Breast composition: There are scattered areas of fibroglandular density. Mass: None. Architectural distortion: None. Calcifications: No suspicious calcifications. Asymmetric density: None. Skin thickening: None. Axillary adenopathy: None. IMPRESSION: No mammographic evidence of malignancy. Annual screening is recommended unless otherwise clinically indicated. ASSESSMENT: BI-RADS Category 1: Negative
== END ==
PROVIDERS: PCP Internal Medicine Adolescent Medicine; Visit Provider Obstetrics & Gynecology
DX: Z12.31 Encounter for screening mammogram for malignant neoplasm of breast (principal)
CPT/HCPCS: 77063; 77067

== ENCOUNTER 2022-06-01 10:32 | Emergency (ER) | payer BC, SELFPAY ==
[2022-06-01 11:06] VITALS: BP 118/75; PULSE 81; RESP 18; TEMP 36.7; O2SAT 99; BMI 26.2
--- NOTE | 2022-06-01 11:12 | EXP.UTC ---
Discharge Plan Disposition Patient Disposition: Home, Self-Care Condition: Good Prescriptions Prescriptions: New azithromycin [Zithromax] 250 mg tablet 250 mg PO UD DOSE PK Qty: 6 0RF Rx Instructions: Take two (2) tablets today, then one (1) tablet days #2 thru #5 benzonatate [benzonatate] 100 mg capsule 100 mg PO TIDP PRN (Reason: Cough) Qty: 30 0RF methylprednisolone 4 mg Tablets,Dose Pack 4 mg PO DIRECTED Qty: 21 0RF No Action montelukast [Singulair] 10 mg tablet 10 mg PO QPM estradiol 1 mg tablet 1 mg PO DAILY Qty: 30 11RF sertraline [Zoloft] 50 mg tablet 50 mg PO DAILY Qty: 30 10RF polymyxin B sulf-trimethoprim [Polytrim] 10,000 unit- 1 mg/mL drops 1 drp ophthalmic (eye) Q3H 7 Days Qty: 10 0RF Rx Instructions: while awake; do not exceed 6 doses in 24 hours tvadpnkynrotwwd-ywsaustbs-GE [Bromfed DM] 2-30-10 mg/5 mL syrup 10 ml PO Q6H PRN (Reason: cold symptoms) Qty: 118 0RF Referrals Follow up/Referrals: Provider,Referral, MD [Primary Care Provider] - See instructions Activity Restrictions/Add. Instructions Additional Instructions/Restrictions: Drink plenty of fluids. Take tylenol or ibuprofen for pain or fever. Take the medications as directed. Follow up with your regular doctor. GO TO THE ER FOR ANY WORSENING SYMPTOMS Clinical Impressions Clinical Impression: Sinusitis, Acute bronchitis Stand Alone Forms Stand Alone Forms: Work/School Release Discharge ED Provider: Ghassan Reece [facility] General Stated complaint: Chest congestion, cough Mode of Arrival: Ambulatory Source of Information: Patient Limitations: No Limitations Time Seen by Provider: 06/01/22 11:12 Description of Symptoms (Recalled from Triage Doc. by RN): pt comes in with c/o cough, back pain, ear pain, drainage. pt was diagnosed with adenovirus last week but cough has gotten worse. HEENT Symptoms (Recalled from RN notes): Yes Resp Symptoms (Recalled from RN notes): Yes Skin Symptoms (Recalled from RN notes): No MS Symptoms (Recalled from RN notes): No Functional Status (Recalled from RN notes): n/a History of Present Illness Provider Complaint: She states that she started coughing about 3 weeks ago. She was seen here on 05/22 and diagnosed with a viral respiratory infection and pink eye. She states that since then her eye is better with the drops, but her cough and congestion has got worse. Related Data Home Medications Medication Instructions Recorded Confirmed montelukast 10 mg tablet 10 mg PO QPM Allergy symptoms 10/21/17 12/22/21 (Singulair) Previous Rx's Medication Instructions Recorded estradiol 1 mg tablet 1 mg PO DAILY MENOPAUSE #30 tabs 01/07/22 sertraline 50 mg tablet (Zoloft) 50 mg PO DAILY #30 tabs 05/18/22 vtavktieqinqxfn-wtoqqosxgnrbicw-XV 10 ml PO Q6H PRN cold symptoms 05/22/22 2 mg-30 mg-10 mg/5 mL oral syrup #118 mL (Bromfed DM) polymyxin B sulfate 10,000 1 drp ophthalmic (eye) Q3H 7 days 05/22/22 unit-trimethoprim 1 mg/mL eye #10 mL drops (Polytrim) azithromycin 250 mg tablet 250 mg PO UD DOSE PK #6 tabs 06/01/22 (Zithromax) benzonatate 100 mg capsule 100 mg PO TIDP PRN Cough #30 caps 06/01/22 methylprednisolone 4 mg tablets in 4 mg PO DIRECTED #21 tabs 06/01/22 a dose pack Allergies Allergy/AdvReac Type Severity Reaction Status Date / Time latex Allergy Intermediate RASH, Verified 06/01/22 11:08 BLISTERS codeine [CODEINE] Allergy Mild Verified 06/01/22 11:08 strawberry Allergy Verified 06/01/22 11:08 Worker's Comp Is this a Worker's Comp case?: No [facility] Disclaimer: The information contained in this section may have been updated after the patient was seen, as this information can be updated by other users. Social History Smoking Status: Never smoker alcohol intake: never substance use type: denies use current occupational status: emplo
[2022-06-01 11:58] VITALS: BP 118/75; PULSE 81; RESP 18; TEMP 36.7
== END 2022-06-01 11:58 | disposition home or self-care (01) ==
PROVIDERS: Emergency Provider Nurse Practitioner Family
DX: J20.9 Acute bronchitis, unspecified (principal); J32.9 Chronic sinusitis, unspecified
CPT/HCPCS: 99212; G0463

== ENCOUNTER → 2023-04-22 23:48 | Outpatient (CLI) | payer BC, SELFPAY | PROVIDERS: PCP Nurse Practitioner Family; Visit Provider Student in an Organized Health Care Education/Training Program | DX: R50.9 Fever, unspecified (principal); J02.9 Acute pharyngitis, unspecified | CPT/HCPCS: 87070; 87635 ==

== ENCOUNTER 2023-04-26 02:41 | Emergency (ER) | payer BC, SELFPAY ==
[2023-04-26 02:43] VITALS: BP 139/94; PULSE 67; RESP 16; TEMP 36.6; O2SAT 100; BMI 27.1
--- NOTE | 2023-04-26 02:50 | PC.NURSE ---
in room talking with patient at this time.
[2023-04-26 02:51] VITALS: BP 139/94; PULSE 63; O2SAT 100
--- NOTE | 2023-04-26 02:58 | XR_ITS ---
PROCEDURE INFORMATION: Exam: XR Abdomen Exam date and time: 04/26/2023 2:56 AM Age: 47 years old Clinical indication: Abdominal pain; Localized; Left lower quadrant (llq); Prior surgery; Surgery date: 6+ months; Surgery type: Hysterectomy; Additional info: Llq pain TECHNIQUE: Imaging protocol: Radiologic exam of the abdomen. Views: Frontal supine view of the abdomen. 1 View. COMPARISON: CR SCAPULART XR scapula RT 07/24/2018 4:27 PM FINDINGS: Gastrointestinal tract: Normal. No bowel dilation. Bones/joints: Unremarkable. IMPRESSION: No acute findings.
[2023-04-26 03:05] LABS: Coronavirus 19, PCR Not Detected (NotDetected); Influenza A, PCR Not Detected (NotDetected); Influenza B, PCR Not Detected (NotDetected)
[2023-04-26 03:05] LABS: Microscopic, Urine URINE MICROSCOPIC (MICROSCOPIC)
[2023-04-26 03:08] LABS: Appearance,Urine CLEAR (Clear); Bilirubin,Urine Negative (Negative); Blood, Urine Negative (Negative); Color,Urine YELLOW (Yellow); Glucose,Urine (UA) Negative (Negative); Ketones,Urine Negative (Negative); Leukocyte Esterase,Urine Negative (Negative); Nitrate,Urine Negative (Negative); Protein,Urine Negative (Negative); Specific Gravity, Urine 1.025 (1.005-1.030); Urobilinogen,Urine 0.2 EU/dl (0.2)
[2023-04-26 03:20] LABS: Bacteria,Urine 1+ /lpf; WBC,Urine Occasional #/hpf (0-3)
--- NOTE | 2023-04-26 03:33 | HMH.EDGENADL ---
Discharge Plan Disposition Patient Disposition: Home, Self-Care Prescriptions Prescriptions: No Action montelukast [Singulair] 10 mg tablet 10 mg PO QPM estradiol 1 mg tablet 1 mg PO DAILY Qty: 30 11RF sertraline [Zoloft] 50 mg tablet 50 mg PO DAILY Qty: 30 9RF all.xt,Kblue-November grass pollen 100,000 BAU/mL solution 1 ba unit SQ MONTHLY fluticasone propionate 50 mcg/actuation spray,suspension 1 spray intranasal DAILY Rx Instructions: administer into each nostril epinephrine 0.3 mg/0.3 mL auto-injector 0.3 ml SQ DIRECTED PRN (Reason: Allergic Reaction) amoxicillin 500 mg capsule 500 mg PO BID 10 Days Qty: 20 0RF Referrals Follow up/Referrals: Leda Jones APRN [Primary Care Provider] - See instructions Activity Restrictions/Add. Instructions Additional Instructions/Restrictions: Please follow-up with your primary care provider. Please return to the emergency department if you develop any new or worsening symptoms or become concerned for your health. Please use MiraLAX and enemas at home as needed to have 1-2 daily soft stools. Clinical Impressions Clinical Impression: Abdominal pain, LLQ Constipation Qualifiers: Constipation type: unspecified constipation type Qualified Code(s): K59.00 - Constipation, unspecified Instructions Patient Instructions: DI for Acute Abdominal Pain Discharge ED Provider: Barrington Powell Adult HPI General Chief complaint: Abdominal Pain Stated complaint: stomach pain,vomiting Time Seen by Provider: 04/26/23 02:48 Mode of Arrival: Ambulatory Source of Information: Patient Limitations: No Limitations Description of Symptoms (Recalled from ER Triage Doc. by RN): pt states she tested positive for strep on tuesday. tonight pt was awoken by LLQ pain with vomitting. pt took zofran at home but was unable to keep down. History of Present Illness HPI narrative: 47-year-old female, history of anxiety, prior hysterectomy, bilateral salpingo-oophorectomy presents with sudden onset left lower quadrant pain. She reports a discharge and spasm in nature. Localized only to the left side. She reports that she was diagnosed with strep throat last week and is currently on amoxicillin. She reports that she has not had a bowel movement since , 5 days ago. She does not normally struggle with constipation. She is still passing gas. She reports no urinary symptoms. She reports a history of kidney stones but does not feel like this is similar nature. She also continued sore throat and some aches in her lower extremities. She has had fever but none in the last couple of days. Tonight she had an episode of vomiting associated with the pain. Related Data Home Medications Medication Instructions Recorded Confirmed montelukast 10 mg tablet 10 mg PO QPM Allergy symptoms 10/21/17 04/26/23 (Singulair) all.xt,Kblue-November grass pollen 1 ba unit SQ MONTHLY 07/26/22 04/26/23 100,000 BAU/mL inject soln fluticasone propionate 50 1 spray intranasal DAILY 07/26/22 04/26/23 mcg/actuation nasal spray,suspension epinephrine 0.3 mg/0.3 mL 0.3 ml SQ DIRECTED PRN Allergic 04/22/23 04/26/23 injection, auto-injector Reaction Previous Rx's Medication Instructions Recorded estradiol 1 mg tablet 1 mg PO DAILY MENOPAUSE #30 tabs 01/10/23 sertraline 50 mg tablet (Zoloft) 50 mg PO DAILY #30 tabs 01/10/23 amoxicillin 500 mg capsule 500 mg PO BID 10 days #20 caps 04/22/23 Allergies Allergy/AdvReac Type Severity Reaction Status Date / Time latex Allergy Intermediate RASH, Verified 04/22/23 15:27 BLISTERS codeine [CODEINE] Allergy Mild Verified 04/22/23 15:27 strawberry Allergy Verified 04/22/23 15:27 mold Allergy Intermediate Sneezing Uncoded 04/22/23 15:27 [facility] Disclaimer: The information contained in this section may have been updated after the patient was seen, as this information can be updated by other users.
--- NOTE | 2023-04-26 03:46 | PC.NURSE ---
Fleet enema administered without difficulty
[2023-04-26 04:03] VITALS: BP 127/76; PULSE 59; RESP 16; TEMP 36.6; O2SAT 100
== END 2023-04-26 04:09 | disposition home or self-care (01) ==
PROVIDERS: Emergency Provider Emergency Medicine; PCP Nurse Practitioner Family
DX: R10.32 Left lower quadrant pain (principal); R11.2 Nausea with vomiting, unspecified; K59.00 Constipation, unspecified
CPT/HCPCS: 74018; 81001; 87636; 99284

== ENCOUNTER → 2023-05-06 08:58 | Outpatient (CLI) | payer BC, SELFPAY | PROVIDERS: PCP Student in an Organized Health Care Education/Training Program; Visit Provider Student in an Organized Health Care Education/Training Program | DX: J02.9 Acute pharyngitis, unspecified (principal) | CPT/HCPCS: 87070 ==

== ENCOUNTER → 2023-05-26 07:48 | Outpatient (CLI) | payer BC, SELFPAY ==
--- NOTE | 2023-05-26 07:49 | MM_ITS ---
PROCEDURE INFORMATION: Exam: MG Bilateral Screening 3D Mammography Exam date and time: 05/26/2023 7:58 AM Age: 47 years old Clinical indication: Screening examination TECHNIQUE: Imaging protocol: Bilateral Screening tomosynthesis and 2D mammography including computer-aided detection (CAD) when performed. COMPARISON: 1. MG MM DIG SCREENING MAMM BI W/CAD 05/25/2022 3:30 PM 2. MG MM DIG SCREENING MAMM BI W/CAD 05/08/2021 1:26 PM FINDINGS: MAMMOGRAPHY: Breast composition: There are scattered areas of fibroglandular density. Mass: None. Architectural distortion: None. Calcifications: No suspicious calcifications. Asymmetric density: None. Skin thickening: None. Axillary adenopathy: None. IMPRESSION: No mammographic evidence of malignancy. Annual screening is recommended unless otherwise clinically indicated. ASSESSMENT: BI-RADS Category 1: Negative
== END ==
PROVIDERS: PCP Student in an Organized Health Care Education/Training Program; Visit Provider Nurse Practitioner Obstetrics & Gynecology
DX: Z12.31 Encounter for screening mammogram for malignant neoplasm of breast (principal)
CPT/HCPCS: 77063; 77067

== ENCOUNTER 2023-07-15 23:45 | Outpatient (CLI) | payer BC, SELFPAY | END 2023-07-15 23:59 | LOC: LAB.DROPOF 23:46 | PROVIDERS: PCP Student in an Organized Health Care Education/Training Program; Visit Provider Student in an Organized Health Care Education/Training Program | DX: J02.9 Acute pharyngitis, unspecified (principal) | CPT/HCPCS: 87070 ==

== ENCOUNTER 2023-07-20 15:33 | Emergency (ER) | payer BC, SELFPAY ==
--- NOTE | 2023-07-20 15:48 | EXP.UTC ---
Discharge Plan Prescriptions Prescriptions: No Action montelukast [Singulair] 10 mg tablet 10 mg PO QPM estradiol 1 mg tablet 1 mg PO DAILY Qty: 30 11RF sertraline [Zoloft] 50 mg tablet 50 mg PO DAILY Qty: 30 9RF all.xt,Kblue-November grass pollen 100,000 BAU/mL solution 1 ba unit SQ MONTHLY fluticasone propionate 50 mcg/actuation spray,suspension 1 spray intranasal DAILY Rx Instructions: administer into each nostril epinephrine 0.3 mg/0.3 mL auto-injector 0.3 ml SQ DIRECTED PRN (Reason: Allergic Reaction) Referrals Follow up/Referrals: Zuly Morgan PA [Primary Care Provider] - See instructions Discharge ED Provider: Ghassan Reece [facility] General Stated complaint: poss sinus inf Time Seen by Provider: 07/20/23 15:48 History of Present Illness Provider Complaint: She states that for the past 5 days she has had worsening sinus congestion, chest congestion, sore throat and ear pain. She has tested negative for influenza, strep, and covid-19 at her pcp office 4 days ago. She refuses anymore viral swabbing. Related Data Home Medications Medication Instructions Recorded Confirmed montelukast 10 mg tablet 10 mg PO QPM Allergy symptoms 10/21/17 07/15/23 (Singulair) all.xt,-November grass pollen 1 ba unit SQ MONTHLY 07/26/22 07/15/23 100,000 BAU/mL inject soln fluticasone propionate 50 1 spray intranasal DAILY 07/26/22 07/15/23 mcg/actuation nasal spray,suspension epinephrine 0.3 mg/0.3 mL 0.3 ml SQ DIRECTED PRN Allergic 04/22/23 07/15/23 injection, auto-injector Reaction Previous Rx's Medication Instructions Recorded estradiol 1 mg tablet 1 mg PO DAILY MENOPAUSE #30 tabs 01/10/23 sertraline 50 mg tablet (Zoloft) 50 mg PO DAILY #30 tabs 01/10/23 Allergies Allergy/AdvReac Type Severity Reaction Status Date / Time latex Allergy Intermediate RASH, Verified 07/20/23 16:00 BLISTERS codeine [CODEINE] Allergy Mild Verified 07/20/23 16:00 strawberry Allergy Verified 07/20/23 16:00 mold Allergy Intermediate Sneezing Uncoded 07/15/23 11:48 [facility] Disclaimer: The information contained in this section may have been updated after the patient was seen, as this information can be updated by other users. Medical History Abrasion of knee Acute bronchitis Acute conjunctivitis of left eye Acute upper respiratory infection Close exposure to COVID-19 virus Influenza Influenza A Nausea & vomiting Pharyngitis Seasonal allergies Strep throat Vasomotor symptoms due to menopause Surgical History H/O: hysterectomy History of section History of hysterectomy with bilateral oophorectomy [place] teeth extracted Family History Mother Hypertension Grandmother Cancer Breast Social History Smoking Status: Never smoker years smoked: 5 smoking status stop date: 1997 alcohol intake: never substance use type: denies use current occupational status: employed Travel in the last 8 weeks: None household members: family housing: house ROS Obtained: Yes All systems reviewed & no additional complaints except as documented Constitutional Constitutional: Reports poor appetite Eyes Eyes: Reports system reviewed and no additional complaints, except as documented ENT Ears, Nose, Mouth, and Throat: Reports as per HPI Cardiovascular Cardiovascular: Reports system reviewed and no additional complaints, except as documented and Denies chest pain Respiratory Respiratory: Denies shortness of breath, Reports chest congestion, Reports cough, Denies stridor and Denies wheezing Gastrointestinal Gastrointestingal: Reports system reviewed and no additional complaints, except as documented; Denies abdominal pain, diarrhea or vomiting Musculoskeletal Musculoskeletal: Reports system reviewed and no additional complaints, except as documented and Denies arthralgias Integumentary/Breasts Skin/Breast: Reports system reviewed and no additional complaints, except as documented and Denies rash Neurologic Neurologic: Denies paresthesias Allergic/Immunologic Allergic/Immunologic: Denies wheezing Physical Exam General General appearance: alert and in no apparent distress Eye Eye exam: Present normal appearance, PERRL and EOMI ENT ENT exam: Present mucous membranes moist and normal external ear exam Expanded ENT Exam External ear exam: Present normal external inspection TM/Canal exam: Bilateral TM: erythema and bulging Nose exam: Absent sinus tenderness Nasal speculum exam: Bilateral: normal Mouth exam: Present normal external inspection; Absent drooling Teeth exam: Present normal inspection Throat exam: Present tonsillar erythema and tonsillomegaly Neck Neck exam: Present normal inspection, full ROM and trachea midline; Absent tenderness, lymphadenopathy or thyromegaly Chest Chest inspection: Present normal inspection and symmetric chest wall rise; Absent tenderness or rash Respiratory Respiratory exam: Present normal lung sounds bilaterally; Absent respiratory distress, wheezes, stridor or accessory muscle use Cardiovascular Cardiovascular exam: Present regular rate, normal rhythm and normal heart sounds Abdominal Exam Abdominal exam: Present soft; Absent distention, tenderness, guarding, rebound or rigidity Extremities Exam Extremities exam: Present normal inspection, full ROM and normal capillary refill; Absent tenderness or calf tenderness Back Exam Back exam: Present normal inspection and full ROM; Absent tenderness Neurological Exam Neurological exam: Present alert and oriented X3 Psychiatric Psychiatric exam: Present normal affect and normal mood Skin Skin exam: Present warm, dry, intact and normal color Lymphatic Lymphatic Findings: no adenopathy Medical Decision Making Medical Records Medical records reviewed: No I reviewed the patient's medical records. Gold Inquiry Pt receiving controlled substance: No
[2023-07-20 15:50] VITALS: BP 126/86; PULSE 89; RESP 18; TEMP 36.8; O2SAT 99; BMI 29.2
[2023-07-20] MEDS: DEXAMETHASONE 4MG/ML 1ML VIAL 8 MG IM (16:18)
[2023-07-20 16:53] VITALS: BP 126/86; PULSE 89; RESP 18; TEMP 36.8; O2SAT 99
== END 2023-07-20 16:53 | disposition home or self-care (01) ==
PROVIDERS: Emergency Provider Nurse Practitioner Family; PCP Student in an Organized Health Care Education/Training Program
DX: J01.90 Acute sinusitis, unspecified (principal); R09.81 Nasal congestion; H92.03 Otalgia, bilateral; R07.0 Pain in throat
CPT/HCPCS: 96372; 99212; 99214; G0463

== ENCOUNTER 2023-09-06 08:31 | Outpatient (CLI) | payer BC, SELFPAY ==
[2023-09-06 09:10] LABS: Basophils # 0.1 K/mm3 (0-0.2); Basophils % 1.1 % (0.1-2.0); Eosinophils # 0.1 K/mm3 (0.0-0.4); Eosinophils % 1.3 % (0.1-12.0); Hematocrit 45.1 % (37.0-47.0); Hemoglobin 14.6 g/dL (12.2-16.2); Lymphocytes # 1.9 K/mm3 (0.7-4.5); Mean Corpuscular HGB Conc 32.3 g/dL (31.8-35.4); Mean Corpuscular Hemoglobin 30.7 pg (27.0-31.2); Mean Corpuscular Volume 95.2 fl (81-99); Mean Platelet Volume 7.4 fl (7.4-10.4); Monocytes # 0.4 K/mm3 (0.1-1.0); Monocytes % 7.1 % (1.7-9.3); Neutrophils # 2.7 K/mm3 (1.8-7.8); Neutrophils % 53.6 % (37.0-80.0); Platelet Count 266 K/mm3 (142-424); Red Blood Count 4.74 M/mm3 (4.20-5.40); Red Cell Distribution Width 12.8 % (11.5-17.5); White Blood Count 5.1 K/mm3 (4.8-10.8)
[2023-09-06 09:39] LABS: Chloride 104 mmol/L (98-107); Potassium 4.3 mmoL/L (3.5-5.1); Sodium 137 mmol/L (136-145)
[2023-09-06 09:41] LABS: Blood Urea Nitrogen 17 mg/dl (7-17); Estimated Glomerular Filt Rate 107 ml/min (>60); GFR (African American) 129 ML/MIN (>60)
[2023-09-06 09:42] LABS: Alanine Aminotransferase 27 U/L (12-78); Albumin Level 4.3 g/dl (3.5-5.0); Albumin/Globulin Ratio 1.8 (1.1-1.8); Alkaline Phosphatase 66 U/L (38-126); Anion Gap 9.3 mEq/L (5-15); Aspartate Amino Transferase 33 U/L (14-36); Bilirubin,Total 0.2 mg/dl (0.2-1.3); Calcium 9.5 mg/dl (8.4-10.2); Carbon Dioxide 28 mmol/L (22.0-30.0); Cholesterol 257 mg/dl (140-200); Globulin 2.4 g/dL (1.3-3.2); Glucose 87 mg/dl (74-100); Total Protein,Serum 6.7 g/dl (6.3-8.2); Triglycerides 116 mg/dl (30-150); VLDL Cholesterol 23 mg/dL (0-40)
[2023-09-06 10:02] LABS: Free T4 (Free Thyroxine) 1.15 ng/dl (0.78-2.19)
[2023-09-06 10:18] LABS: Thyroid Stimulating Hormone 1.25 uIU/mL (0.465-4.68)
[2023-09-06 10:44] LABS: Direct LDL Cholesterol 120.28 mg/dL (100-129)
[2023-09-06 10:50] LABS: 25-OH Vitamin D, Total 67.8 ng/mL (30-100)
[2023-09-06 11:40] LABS: Vitamin B12 881 pg/mL (239-931)
[2023-09-06 11:50] LABS: Chol/HDL Ratio 2.3 (1-3.5); HDL Cholesterol 110 mg/dl (40-60)
[2023-09-06 11:55] LABS: Folate 9.51 ng/mL
[2023-09-06 11:58] LABS: Hemoglobin A1C 5.3 % (4.0-6.0)
[2023-09-06 12:25] LABS: Total Iron Binding Capacity 296 ug/dL (265-497)
[2023-09-06 13:04] LABS: Iron 88 ug/dL (37-170)
[2023-09-07 14:26] LABS: EBV Ab VCA, IgM <36.0 U/mL (0.0-35.9)
== END 2023-09-06 23:59 ==
LOC: LAB 08:31
PROVIDERS: PCP Student in an Organized Health Care Education/Training Program; Visit Provider Student in an Organized Health Care Education/Training Program
DX: R53.83 Other fatigue (principal); Z79.899 Other long term (current) drug therapy
CPT/HCPCS: 36415; 80053; 80061; 82306; 82607; 82728; 82746; 83036; 83540; 83550; 84439; 84443; 85025; 86664; 86665

== ENCOUNTER 2023-09-25 09:42 | Emergency (ER) | payer BC, SELFPAY ==
[2023-09-25 10:00] VITALS: BP 125/77; PULSE 80; RESP 18; TEMP 36.5; O2SAT 98; BMI 28.2
--- NOTE | 2023-09-25 10:04 | EXP.UTC ---
Discharge Plan Disposition Patient Disposition: Home, Self-Care Condition: Good Prescriptions Prescriptions: New amoxicillin 875 mg tablet 875 mg PO Q12H Qty: 20 0RF benzonatate 100 mg capsule 100 mg PO TIDP PRN (Reason: Cough) Qty: 30 0RF methylprednisolone 4 mg Tablets,Dose Pack 4 mg PO DIRECTED 6 Days Qty: 21 0RF Rx Instructions: Take 1 pack as directed for 6 days No Action montelukast [Singulair] 10 mg tablet 10 mg PO QPM estradiol 1 mg tablet 1 mg PO DAILY Qty: 30 11RF sertraline [Zoloft] 50 mg tablet 50 mg PO DAILY Qty: 30 9RF all.xt,-November grass pollen 100,000 BAU/mL solution 1 ba unit SQ MONTHLY fluticasone propionate 50 mcg/actuation spray,suspension 1 spray intranasal DAILY Rx Instructions: administer into each nostril epinephrine 0.3 mg/0.3 mL auto-injector 0.3 ml SQ DIRECTED PRN (Reason: Allergic Reaction) Referrals Follow up/Referrals: Zuly Morgan PA [Primary Care Provider] - See instructions Activity Restrictions/Add. Instructions Additional Instructions/Restrictions: Drink plenty of fluids. Take tylenol or ibuprofen for pain or fever. Take the medications as directed. Follow up with your regular doctor. GO TO THE ER FOR ANY WORSENING SYMPTOMS Clinical Impressions Clinical Impression: Pharyngitis Stand Alone Forms Stand Alone Forms: Work/School Release Instructions Patient Instructions: DI for Pharyngitis/Tonsillopharyngitis -- Adult, Sore Throat Discharge ED Provider: Ghassan Reece [facility] General Stated complaint: sore throat Time Seen by Provider: 09/25/23 10:04 History of Present Illness Provider Complaint: She states that for the past 2 days she has had worsening sore throat, low grade fever, and malaise. 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 Related Data Home Medications Medication Instructions Recorded Confirmed montelukast 10 mg tablet 10 mg PO QPM Allergy symptoms 10/21/17 09/25/23 (Singulair) all.xt,-November grass pollen 1 ba unit SQ MONTHLY 07/26/22 07/29/23 100,000 BAU/mL inject soln fluticasone propionate 50 1 spray intranasal DAILY 07/26/22 09/25/23 mcg/actuation nasal spray,suspension epinephrine 0.3 mg/0.3 mL 0.3 ml SQ DIRECTED PRN Allergic 04/22/23 09/25/23 injection, auto-injector Reaction Previous Rx's Medication Instructions Recorded estradiol 1 mg tablet 1 mg PO DAILY MENOPAUSE #30 tabs 01/10/23 sertraline 50 mg tablet (Zoloft) 50 mg PO DAILY #30 tabs 01/10/23 amoxicillin 875 mg tablet 875 mg PO Q12H #20 tabs 09/25/23 benzonatate 100 mg capsule 100 mg PO TIDP PRN Cough #30 caps 09/25/23 methylprednisolone 4 mg tablets in 4 mg PO DIRECTED 6 days #21 tabs 09/25/23 a dose pack Allergies Allergy/AdvReac Type Severity Reaction Status Date / Time latex Allergy Intermediate RASH, Verified 09/25/23 10:08 BLISTERS codeine [CODEINE] Allergy Mild Verified 09/25/23 10:08 strawberry Allergy Verified 09/25/23 10:08 mold Allergy Intermediate Sneezing Uncoded 07/29/23 15:24 [facility] Disclaimer: The information contained in this section may have been updated after the patient was seen, as this information can be updated by other users. Medical History Abrasion of knee Acute bronchitis Acute conjunctivitis of left eye Acute upper respiratory infection Close exposure to COVID-19 virus Influenza Influenza A Nausea & vomiting Pharyngitis Seasonal allergies Strep throat Vasomotor symptoms due to menopause Surgical History H/O: hysterectomy History of section History of hysterectomy with bilateral oophorectomy [place] teeth extracted Family History Mother Hypertension Grandmother Cancer Breast Social History Smoking Status: Never smoker years smoked: 5 smoking status stop date: 1997 alcohol intake: never substance use type: denies use current occupational status: employed Travel in the last 8 weeks: None household members: family housing: house ROS Obtained: Yes All systems reviewed & no additional complaints except as documented Constitutional Constitutional: Reports chills and Reports fever(s) Eyes Eyes: Denies eye discharge ENT Ears, Nose, Mouth, and Throat: Reports as per HPI Cardiovascular Cardiovascular: Denies chest pain Respiratory Respiratory: Denies chest congestion and Reports cough Gastrointestinal Gastrointestingal: Reports nausea; Denies abdominal pain, constipation, cramping, diarrhea or vomiting Musculoskeletal Musculoskeletal: Denies arthralgias Integumentary/Breasts Skin/Breast: Denies rash Neurologic Neurologic: Denies paresthesias Physical Exam General General appearance: alert and in no apparent distress Head Head exam: atraumatic, normocephalic and normal inspection Eye Eye exam: Present normal appearance, PERRL and EOMI ENT ENT exam: Present mucous membranes moist and normal external ear exam Expanded ENT Exam TM/Canal exam: Bilateral TM: erythema and bulging Nose exam: Absent sinus tenderness Mouth exam: Present normal external inspection; Absent drooling Teeth exam: Present normal inspection Throat exam: Present tonsillar erythema, tonsillomegaly and tonsillar exudate Neck Neck exam: Present normal inspection, full ROM and trachea midline; Absent tenderness, meningismus or lymphadenopathy Chest Chest inspection: Present normal inspection and symmetric chest wall rise; Absent tenderness Respiratory Respiratory exam: Present normal lung sounds bilaterally; Absent respiratory distress, wheezes, stridor or accessory muscle use Cardiovascular Cardiovascular exam: Present regular rate and normal rhythm; Absent systolic murmur or diastolic murmur Abdominal Exam Abdominal exam: Present soft and normal bowel sounds; Absent distention, tenderness, guarding, rebound or rigidity Extremities Exam Extremities exam: Present normal inspection and normal capillary refill; Absent calf tenderness Back Exam Back exam: Present normal inspection and full ROM; Absent tenderness, CVA tenderness (R) or CVA tenderness (L) Neurological Exam Neurological exam: Present alert, oriented X3 and CN II-XII intact Psychiatric Psychiatric exam: Present normal affect and normal mood Skin Skin exam: Present warm, dry, intact and normal color Medical Decision Making Medical Records Medical records reviewed: No I reviewed the patient's medical records. Gold Inquiry Pt receiving controlled substance: No Lab Data Lab results reviewed: Yes I reviewed the patient's lab results.
[2023-09-25 10:14] LABS: UTC Strep Screen (Rapid) Negative (Negative)
[2023-09-25 10:44] VITALS: BP 125/77; PULSE 80; RESP 18; TEMP 36.5; O2SAT 98
== END 2023-09-25 10:44 | disposition home or self-care (01) ==
PROVIDERS: Emergency Provider Nurse Practitioner Family; PCP Student in an Organized Health Care Education/Training Program
DX: J02.9 Acute pharyngitis, unspecified (principal); R50.9 Fever, unspecified; R53.81 Other malaise; Z20.818 Contact with and (suspected) exposure to other bacterial communicable diseases
CPT/HCPCS: 87880; 99212; 99214; G0463

== ENCOUNTER 2024-02-01 15:40 | Emergency (ER) | payer BC, SELFPAY ==
[2024-02-01 15:50] VITALS: BP 126/77; PULSE 89; RESP 20; TEMP 37.2; O2SAT 97; BMI 25.7
--- NOTE | 2024-02-01 16:32 | EXP.UTC ---
Discharge Plan Disposition Patient Disposition: Home, Self-Care Condition: Good Prescriptions Prescriptions: New azithromycin [Zithromax] 250 mg tablet 250 mg PO UD DOSE PK Qty: 6 0RF Rx Instructions: Take two (2) tablets today, then one (1) tablet days #2 thru #5 methylprednisolone 4 mg Tablets,Dose Pack 4 mg PO DIRECTED 6 Days Qty: 21 0RF Rx Instructions: Take 1 pack as directed for 6 days [id number] [Bromfed DM] 2-30-10 mg/5 mL Syrup 5 ml PO Q6H PRN (Reason: Cough) Qty: 240 0RF No Action montelukast [Singulair] 10 mg tablet 10 mg PO QPM estradiol 1 mg tablet 1 mg PO DAILY Qty: 30 11RF fluconazole 150 mg tablet 150 mg PO Q3D Qty: 2 0RF terconazole 0.8 % cream 1 appful vaginal HS 3 Days Qty: 20 1RF sertraline [Zoloft] 50 mg tablet 50 mg PO DAILY Qty: 30 11RF Referrals Follow up/Referrals: Zluy Morgan PA [Primary Care Provider] - See instructions Activity Restrictions/Add. Instructions Additional Instructions/Restrictions: Drink plenty of fluids. Take tylenol or ibuprofen for pain or fever. Take the medications as directed. Follow up with your regular doctor. GO TO THE ER FOR ANY WORSENING SYMPTOMS Clinical Impressions Clinical Impression: Pharyngitis, Sinusitis Stand Alone Forms Stand Alone Forms: Work/School Release Instructions Patient Instructions: Sinusitis, DI for Sinusitis Print Language Print Language: Eritrean Discharge ED Provider: Ghassan Reece [facility] [place], [place] HPI General Stated complaint: Congestion Mode of Arrival: Ambulatory Source of Information: Patient Limitations: No Limitations Time Seen by Provider: 02/01/24 16:29 Description of Symptoms (Recalled from Triage Doc. by RN): PATIENT C/O NASAL CONGESTION/PRESSURE, RUNNY NOSE, AND POPPING IN HER EARS WHEN SHE SWALLOWS SINCE TUESDAY HEENT Symptoms (Recalled from RN notes): Yes Resp Symptoms (Recalled from RN notes): No Skin Symptoms (Recalled from RN notes): No MS Symptoms (Recalled from RN notes): No Functional Status (Recalled from RN notes): WNL Related Data Home Medications ?Medication ?Instructions ?Recorded ?Confirmed montelukast 10 mg tablet 10 mg PO QPM Allergy symptoms 05/18/18 08/28/24 (Singulair) Previous Rx's ?Medication ?Instructions ?Recorded estradiol 1 mg tablet 1 mg PO DAILY MENOPAUSE #30 tabs 01/26/24 fluconazole 150 mg tablet 150 mg PO Q3D 2 doses #2 tabs 01/26/24 sertraline 50 mg tablet (Zoloft) 50 mg PO DAILY #30 tabs 01/26/24 terconazole 0.8 % vaginal cream 1 appful vaginal HS 3 days #20 01/26/24 grams azithromycin 250 mg tablet 250 mg PO UD DOSE PK #6 tabs 02/01/24 (Zithromax) [id number] 5 ml PO Q6H PRN Cough #240 mL 02/01/24 2 mg-30 mg-10 mg/5 mL oral syrup (Bromfed DM) methylprednisolone 4 mg tablets in 4 mg PO DIRECTED 6 days #21 tabs 02/01/24 a dose pack Allergies Allergy/AdvReac Type Severity Reaction Status Date / Time latex Allergy Intermediate RASH, Verified 01/26/24 15:34 BLISTERS codeine [CODEINE] Allergy Mild Verified 01/26/24 15:34 strawberry Allergy Verified 01/26/24 15:34 mold Allergy Intermediate Sneezing Uncoded 01/26/24 15:34 Worker's Comp Is this a Worker's Comp case?: No [facility] Disclaimer: The information contained in this section may have been updated after the patient was seen, as this information can be updated by other users. Medical History Seasonal allergies Acute bronchitis Acute upper respiratory infection Acute conjunctivitis of left eye Pharyngitis Influenza Strep throat Nausea & vomiting Close exposure to COVID-19 virus Vasomotor symptoms due to menopause Influenza A Abrasion of knee Surgical History History of section H/O: hysterectomy [place] teeth extracted History of
[2024-02-01 16:47] VITALS: BP 126/77; PULSE 89; RESP 20; TEMP 37.2; O2SAT 97
== END 2024-02-01 16:49 | disposition home or self-care (01) ==
PROVIDERS: Emergency Provider Nurse Practitioner Family; PCP Student in an Organized Health Care Education/Training Program
DX: J02.9 Acute pharyngitis, unspecified (principal); J01.90 Acute sinusitis, unspecified; H92.03 Otalgia, bilateral
CPT/HCPCS: 99212; 99214; G0463

== ENCOUNTER 2024-04-13 16:17 | Emergency (ER) | payer BC, SELFPAY ==
[2024-04-13 16:25] VITALS: BP 135/82; PULSE 81; RESP 20; TEMP 36.9; O2SAT 96; BMI 30.1
--- NOTE | 2024-04-13 16:34 | ED_ITS ---
Discharge Plan Disposition Patient Disposition: Home, Self-Care Condition: Good Prescriptions Prescriptions: New methylprednisolone [Medrol (Dinesh)] 4 mg tablets,dose pack See Rx Instructions .Route .COMPLEX 6 Days Qty: 21 0RF Rx Instructions: taper pack; amoxicillin-pot clavulanate 875-125 mg Tablet 1 tab PO Q12H 7 Days Qty: 14 0RF No Action montelukast [Singulair] 10 mg tablet 10 mg PO QPM estradiol 1 mg tablet 1 mg PO DAILY Qty: 30 11RF sertraline [Zoloft] 50 mg tablet 50 mg PO DAILY Qty: 30 11RF Referrals Follow up/Referrals: Zuly Morgan PA [Primary Care Provider] - See instructions Activity Restrictions/Add. Instructions Additional Instructions/Restrictions: *Monitor Temp, Over the counter Motrin or Tylenol as directed/as needed Tylenol every 4 hours and Motrin every 6 hours (as long as your family doctor has told you that you can take it) for fever or pain. and straight to ER if unable to lower temp less than 101.0 after medication given *Warm salt water gargles may help to soothe the throat *Throat Lozenges? *Warm fluids like tea with honey may help to soothe the throat? *Sleep elevated *Humidifier/Vaporizer Your throat swab was sent for culture. Those results are typically sent to your primary care. Be sure to follow up in 2-3 days with your family doctor/primary care physician if no improvement so they can review those result and treat if necessary. If you don?t have a primary care doctor, I recommend you get one but in the mean time, you will have to return to a walk in clinic Follow up IMMEDIATELY for new or worsening symptoms or no Noticeable improvement over the next 48-72 hours. 911 for difficulty breathing or swallowing Clinical Impressions Clinical Impression: Sinusitis Qualifiers: Sinusitis location: unspecified location Chronicity: unspecified Qualified Code(s): J32.9 - Chronic sinusitis, unspecified Instructions Patient Instructions: Sinusitis, DI for Sinusitis Print Language Print Language: Bengali Discharge ED Provider: Nancy Helm [facility] General Stated complaint: Cough,congesgtion Mode of Arrival: Ambulatory Source of Information: Patient Limitations: No Limitations Time Seen by Provider: 04/13/24 16:34 Description of Symptoms (Recalled from Triage Doc. by RN): PATIENT C/O COUGH, CONGESTION, DRAINAGE, AND SORE THROAT SINCE 04/04/24 HEENT Symptoms (Recalled from RN notes): Yes Resp Symptoms (Recalled from RN notes): Yes Skin Symptoms (Recalled from RN notes): No MS Symptoms (Recalled from RN notes): No Functional Status (Recalled from RN notes): WNL History of Present Illness Provider Complaint: Patient states that she hasnt felt well for several weeks States that she has been having sinus pain and pressure, cough, headache and sore throat States that she seen her PCP last week and dx with allergic rhinitis but it has got worse since then States she is having pressure behind her eyes like she may have a bad sinus infection so today she came in to get checked Related Data Home Medications ?Medication ?Instructions ?Recorded ?Confirmed montelukast 10 mg tablet 10 mg PO QPM Allergy symptoms 10/21/17 04/13/24 (Singulair) Previous Rx's ?Medication ?Instructions ?Recorded estradiol 1 mg tablet 1 mg PO DAILY MENOPAUSE #30 tabs 01/26/24 sertraline 50 mg tablet (Zoloft) 50 mg PO DAILY #30 tabs 01/26/24 amoxicillin 875 mg-potassium 1 tab PO Q12H 7 days #14 tabs 04/13/24 clavulanate 125 mg tablet methylprednisolone 4 mg tablets in See Rx Instructions .Route 04/13/24 a dose pack (Medrol (Dinesh)) .COMPLEX 6 days #21 tabs Allergies Allergy/AdvReac Type Severity Reaction Status Date / Time latex Allergy Intermediate RASH, Verified 04/06/24 15:39 BLISTERS codeine [CODEINE] Allergy Mild Verified 04/06/24 15:39 strawberry Allergy Verified 04/06/24 15:39 mold Allergy Intermediate Sneezing Uncoded 01/26/24 15:34 Worker's Comp Is this a Worker's Comp case?: No [facility] Disclaimer: The information contained in this section may have been updated after the patient was seen, as this information can be updated by other users. Medical History Seasonal allergies Acute bronchitis Acute upper respiratory infection Acute conjunctivitis of left eye Pharyngitis Influenza Strep throat Nausea & vomiting Close exposure to COVID-19 virus Vasomotor symptoms due to menopause Influenza A Abrasion of knee Surgical History History of section H/O: hysterectomy [place] teeth extracted History of hysterectomy with bilateral oophorectomy Family History Mother Hypertension Grandmother Cancer Breast Social History Smoking Status: Never smoker years smoked: 5 smoking status stop date: 1997 alcohol intake: never substance use type: denies use current occupational status: employed Travel in the last 8 weeks: None household members: family housing: house ROS Obtained: Yes All systems reviewed & no additional complaints except as documented and Yes Systems reviewed as appropriate & no additional complaints except as documented Constitutional Constitutional: Reports system reviewed and no additional complaints, except as documented, Reports as per HPI, Reports body ache and Reports headache(s) ENT Ears, Nose, Mouth, and Throat: Reports system reviewed and no additional complaints, except as documented, Reports as per HPI, Reports headache(s), Reports sinus pain, Reports sinus pressure and Reports sore throat Cardiovascular Cardiovascular: Reports system reviewed and no additional complaints, except as documented and Reports as per HPI Respiratory Respiratory: Reports system reviewed and no additional complaints, except as documented, Reports as per HPI and Reports cough Gastrointestinal Gastrointestingal: Reports system reviewed and no additional complaints, except as documented and as per HPI Neurologic Neurologic: Reports headache(s) Physical Exam General General appearance: alert and in no apparent distress ENT ENT exam: Present mucous membranes moist Expanded ENT Exam Nose exam: Present sinus tenderness Throat exam: Present other (Pharyngeal erythema noted with PND) Respiratory Respiratory exam: Present normal lung sounds bilaterally; Absent respiratory distress or wheezes Cardiovascular Cardiovascular exam: Present regular rate, normal rhythm and normal heart sounds Abdominal Exam Abdominal exam: Present soft and normal bowel sounds; Absent distention or tenderness Neurological Exam Neurological exam: Present alert, oriented X3 and normal gait Medical Decision Making Medical Records Screening: Per USPSTF and CDC recommendations, given the prevalence of disease in our region, it is our hospital?s policy to screen for HIV and viral Hepatitis for all patients aged 18 and over and those with ongoing risk factors. Gold Inquiry Pt receiving controlled substance: No Gold was queried for this patient: No Vital Signs: 04/13/24 16:25 Temperature 98.4 F Temperature Source Oral Pulse Rate [Left Brachial] 81 Respiratory Rate 20 Blood Pressure [Left Arm] 135/82 Blood Pressure Mean [Left Arm] 99 Blood Pressure Source [Left Arm] Automatic Cuff Blood Pressure Position [Left Arm] Sitting 02 Sat by Pulse Oximetry 96 Oxygen Delivery Method Room Air Lab Data Lab results reviewed: Yes I reviewed the patient's lab results.
[2024-04-13 16:42] LABS: UTC Strep Screen (Rapid) Negative (Negative)
[2024-04-13 16:46] VITALS: BP 135/82; PULSE 81; RESP 20; TEMP 36.9; O2SAT 96
== END 2024-04-13 16:48 | disposition home or self-care (01) ==
PROVIDERS: Emergency Provider Nurse Practitioner; PCP Student in an Organized Health Care Education/Training Program
DX: J32.9 Chronic sinusitis, unspecified (principal); R05.9 Cough, unspecified; R09.81 Nasal congestion; R51.9 Headache, unspecified; J02.9 Acute pharyngitis, unspecified
CPT/HCPCS: 87880; 99212; G0381

== ENCOUNTER 2024-06-04 13:46 | Outpatient (CLI) | payer BC, SELFPAY ==
--- NOTE | 2024-06-04 13:46 | MM_ITS ---
PROCEDURE INFORMATION: Exam: MG Bilateral Screening 3D Mammography Exam date and time: 06/04/2024 1:30 PM Age: 48 years old Clinical indication: Screening examination TECHNIQUE: Imaging protocol: Bilateral Screening tomosynthesis and 2D mammography including computer-aided detection (CAD) when performed. COMPARISON: 1. MG MM DIG SCREENING MAMM BI W/CAD 05/26/2023 7:58 AM 2. MG MM DIG SCREENING MAMM BI W/CAD 05/25/2022 3:30 PM FINDINGS: MAMMOGRAPHY: Breast composition: There are scattered areas of fibroglandular density. Mass: None. Architectural distortion: None. Calcifications: No suspicious calcifications. Asymmetric density: None. Skin thickening: None. Axillary adenopathy: None. IMPRESSION: No mammographic evidence of malignancy. Annual screening is recommended unless otherwise clinically indicated. ASSESSMENT: BI-RADS Category 1: Negative.
== END 2024-06-04 23:59 | disposition home or self-care (01) ==
LOC: RAD 13:46
PROVIDERS: PCP Student in an Organized Health Care Education/Training Program; Visit Provider Nurse Practitioner Obstetrics & Gynecology
DX: Z12.31 Encounter for screening mammogram for malignant neoplasm of breast (principal)
CPT/HCPCS: 77063; 77067

== ENCOUNTER 2024-07-14 10:00 | Emergency (ER) | payer BC, SELFPAY ==
[2024-07-14 10:53] VITALS: BP 138/84; PULSE 74; RESP 18; TEMP 36.6; O2SAT 96; BMI 30.3
[2024-07-14 11:09] LABS: UTC Strep Screen (Rapid) Negative (Negative)
--- NOTE | 2024-07-14 11:22 | EXP.UTC ---
Discharge Plan Disposition Patient Disposition: Home, Self-Care Condition: Good Prescriptions Prescriptions: No Action montelukast [Singulair] 10 mg tablet 10 mg PO QPM estradiol 1 mg tablet 1 mg PO DAILY Qty: 30 11RF sertraline [Zoloft] 50 mg tablet 50 mg PO DAILY Qty: 30 11RF Referrals Follow up/Referrals: Leda Jones APRN [Primary Care Provider] - See instructions Activity Restrictions/Add. Instructions Additional Instructions/Restrictions: No sign of a bacterial infection. Likely viral. Viruses can take 7-14 days to run their course. Nasal saline and bulb syringe or nose Abigail to remove nasal drainage to help with nasal congestion. Hard to eat, drink, sleep with nasal congestion so important to keep this cleaned out. Monitor temp. Tylenol or Motrin as needed for pain or fever Encourage fluids, water, Gatorade, Powerade, Pedialyte if infant/toddler/child Warm salt water gargles Warm fluids Sore throat lozenges Sleep elevated Humidifier/vaporizer Follow-up immediately for new or worsening symptoms or no noticeable improvement over the next 48-72 hours. Clinical Impressions Clinical Impression: Upper respiratory infection, viral Instructions Patient Instructions: DI for Viral Upper Respiratory Infection -- Adult Print Language Print Language: Kyrgyz Discharge ED Provider: Rayna ([facility])[place] [facility] [place] General Stated complaint: cough sore throat headache ear pain Mode of Arrival: Ambulatory Source of Information: Patient Time Seen by Provider: 07/14/24 11:22 Description of Symptoms (Recalled from Triage Doc. by RN): SORE THROAT, STREP EXP HEENT Symptoms (Recalled from RN notes): Yes Resp Symptoms (Recalled from RN notes): Yes Skin Symptoms (Recalled from RN notes): No MS Symptoms (Recalled from RN notes): No Functional Status (Recalled from RN notes): WNL History of Present Illness Provider Complaint: 48-year-old female presents for sore throat, nasal congestion, denies fever. Patient states she has been exposed to strep throat Related Data Home Medications ?Medication ?Instructions ?Recorded ?Confirmed montelukast 10 mg tablet 10 mg PO QPM Allergy symptoms 10/21/17 05/17/24 (Singulair) Previous Rx's ?Medication ?Instructions ?Recorded estradiol 1 mg tablet 1 mg PO DAILY MENOPAUSE #30 tabs 01/26/24 sertraline 50 mg tablet (Zoloft) 50 mg PO DAILY #30 tabs 01/26/24 Allergies Allergy/AdvReac Type Severity Reaction Status Date / Time latex Allergy Intermediate RASH, Verified 05/17/24 15:38 BLISTERS codeine (CODEINE) Allergy Mild Verified 05/17/24 15:38 strawberry Allergy Verified 05/17/24 15:38 mold Allergy Intermediate Sneezing Uncoded 01/26/24 15:34 Worker's Comp Is this a Worker's Comp case?: No [facility] Disclaimer: The information contained in this section may have been updated after the patient was seen, as this information can be updated by other users. 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[employer]) Seasonal allergies Acute bronchitis Acute upper respiratory infection Acute conjunctivitis of left eye Pharyngitis Influenza Strep throat Nausea & vomiting Close exposure to COVID-19 virus Vasomotor symptoms due to menopause Influenza A Abrasion of knee Surgical History , FARM HELPER) History of section H/O: hysterectomy [place] teeth extracted History of hysterectomy with bilateral oophorectomy Family History , FARM HELPER) Cancer Grandmother Hypertension Mother Social History , FARM HELPER) Smoking Status: Never smoker years smoked: 5 smoking status stop date: 1997 alcohol intake: never substance use type: denies use current occupational status: employed Travel in the last 8 weeks: None household members: family housing: house Have you lived/traveled outside [place] in past 30 days?: No Contact w/someone who lives/traveled outside US past 30 days?: No Exposure to someone with infectious disease in past 14 days?: No Do you have a fever (greater than 100.4 F or 38 C)?: No Have you tested positive for COVID-19: No Exposed to someone with COVID-19 in past 14 days?: No Do you have a sore throat?: Yes Do you have a cough?: Yes Do you have any weakness?: No Do you have any diarrhea?: No Are you experiencing any unusual bleeding?: No Do you have any muscle aches/pain?: No Do you have any abdominal pain?: No Are you experiencing loss of taste or smell?: No ROS Obtained: Yes Systems reviewed as appropriate & no additional complaints except as documented ENT Ears, Nose, Mouth, and Throat: Reports system reviewed and no additional complaints, except as documented, Reports as per HPI, Reports nasal congestion and Reports sore throat Physical Exam General General appearance: alert and in no apparent distress ENT ENT exam: Present mucous membranes moist and TM's normal bilaterally Expanded ENT Exam Throat exam: Present tonsillar erythema Respiratory Respiratory exam: Present normal lung sounds bilaterally Cardiovascular Cardiovascular exam: Present regular rate and normal rhythm Neurological Exam Neurological exam: Present alert and oriented X3 Skin Skin exam: Present warm and intact Medical Decision Making Medical Records Medical records reviewed: Yes I reviewed the patient's medical records. Screening: Per USPSTF and CDC recommendations, given the prevalence of disease in our region, it is our hospital?s policy to screen for HIV and viral Hepatitis for all patients aged 18 and over and those with ongoing risk factors. Gold Inquiry Pt receiving controlled substance: No Vital Signs: 07/14/24 10:53 Temperature 97.8 F Temperature Source Oral Pulse Rate [Left Radial] 74 Respiratory Rate 18 Blood Pressure [Left Arm] 138/84 Blood Pressure Mean [Left Arm] 102 02 Sat by Pulse Oximetry 96 Lab Data Lab results reviewed: Yes I reviewed the patient's lab results. Lab Results 07/14/24 10:55: Strep Scn Rapid Clinic Negative Orders (Tests/Meds): ORDERS Category Date Time Status Strep Screen Confirmation Stat Micro 07/14/24 10:55 Received
[2024-07-14 11:39] LABS: UTC Influenza A Antigen Negative (Negative)
[2024-07-14 11:40] LABS: UTC Influenza B Antigen Negative (Negative)
[2024-07-14 11:51] VITALS: BP 138/84; PULSE 74; RESP 18; TEMP 36.6
== END 2024-07-14 11:54 | disposition home or self-care (01) ==
PROVIDERS: Emergency Provider Nurse Practitioner Family; PCP Nurse Practitioner Family
DX: J06.9 Acute upper respiratory infection, unspecified (principal)
CPT/HCPCS: 87804; 87880; 99213; G0381

== ENCOUNTER 2024-07-16 07:58 | Outpatient (CLI) | payer BC, SELFPAY ==
--- NOTE | 2024-07-16 08:02 | XR_ITS ---
FINAL REPORT CLINICAL HISTORY: bilateral foot pain COMPARISON: None FINDINGS: LEFT FOOT Three views show no evidence of acute displaced fracture or dislocation of the visualized bony architecture. The joint spaces appear normal. IMPRESSION: Unremarkable exam. Reviewed, Interpreted and Dictated by Linda Escobar MD Transcribed by Yulissa Sandoval Authenticated and [facility]
--- NOTE | 2024-07-16 08:02 | XR_ITS ---
FINAL REPORT CLINICAL HISTORY: bilateral foot pain, mainly pain in arch of right foot COMPARISON: 09/10/2020 FINDINGS: RIGHT FOOT Three views show no evidence of acute displaced fracture or dislocation of the visualized bony architecture. The joint spaces appear normal. IMPRESSION: Unremarkable exam. Reviewed, Interpreted and Dictated by Linda Escobar MD Transcribed by Yulissa Sandoval Authenticated and [facility]
== END 2024-07-16 23:59 | disposition home or self-care (01) ==
LOC: RAD 07:59
PROVIDERS: PCP Nurse Practitioner Family; Visit Provider Podiatrist
DX: M79.671 Pain in right foot (principal); M79.672 Pain in left foot
CPT/HCPCS: 73630

== ENCOUNTER 2024-08-14 08:09 | Emergency (ER) | payer BC, SELFPAY ==
[2024-08-14 08:14] VITALS: BP 153/61; PULSE 67; O2SAT 98
[2024-08-14 08:17] VITALS: BP 153/61; PULSE 78; RESP 13; TEMP 36.5; O2SAT 97; BMI 29.2
--- NOTE | 2024-08-14 08:18 | PC.NURSE ---
Spouse at BS with patient.
--- NOTE | 2024-08-14 08:40 | HMH.EDGENADL ---
Discharge Plan Disposition Patient Disposition: Home, Self-Care Prescriptions Prescriptions: New prednisone 20 mg tablet 40 mg PO DAILY 5 Days Qty: 10 0RF methocarbamol 750 mg tablet 1,500 mg PO TID 5 Days Qty: 30 0RF No Action montelukast [Singulair] 10 mg tablet 10 mg PO QPM estradiol 1 mg tablet 1 mg PO DAILY Qty: 30 11RF sertraline [Zoloft] 50 mg tablet 50 mg PO DAILY Qty: 30 11RF Referrals Follow up/Referrals: Leda Jones APRN [Primary Care Provider] - See instructions Activity Restrictions/Add. Instructions Additional Instructions/Restrictions: Prednisone each morning after waking up, do not take this in the afternoon or before bed as it can cause insomnia. Take with plenty of food and water. Robaxin as prescribed. Robaxin can cause you to feel drowsy. Do not drive, operate heavy machinery, or engage in any activity that may make you tired, fall asleep, and because harm to yourself or others while taking this medication. Clinical Impressions Clinical Impression: Back pain Print Language Print Language: Latvian Discharge ED Provider: Basim Valdes General Adult HPI General Chief complaint: PAIN Stated complaint: back pain post chiropractor apt Time Seen by Provider: 08/14/24 08:11 Mode of Arrival: Ambulatory Source of Information: Patient Description of Symptoms (Recalled from ER Triage Doc. by RN): pt presents to ED with c/o left sided back pain. pt reports pain began this am. pt had adjustment with chiropractor yesterday. pt awoke with pain this am. pt reports sharp spasms. pt reports trying ibuprofen and ice pack but with no relief. History of Present Illness HPI narrative: Please note that above description of symptoms, in this electronic medical record under categorization of recalled from ER triage doctor by RN are reflective of an initial nursing assessment, however, is not reflective of my full history and physical exam that was personally taken and clarified. Consequentially, this preceding description of symptoms, which may include the patient's categorized chief complaint in the EMR, do not reflect my personal clinical impression, and the ultimate description of history of present illness and patient stated complaints should be deferred to this section of the note. Unless stated otherwise or congruent with this section of the note, additional signs, symptoms, or incongruence should be interpreted as inaccurate with my clinical impression. Related Data Home Medications ?Medication ?Instructions ?Recorded ?Confirmed montelukast 10 mg tablet 10 mg PO QPM Allergy symptoms 10/21/17 08/14/24 (Singulair) Previous Rx's ?Medication ?Instructions ?Recorded estradiol 1 mg tablet 1 mg PO DAILY MENOPAUSE #30 tabs 01/26/24 sertraline 50 mg tablet (Zoloft) 50 mg PO DAILY #30 tabs 01/26/24 methocarbamol 750 mg tablet 1,500 mg (2 x 750 mg) PO TID 5 08/14/24 days #30 tabs prednisone 20 mg tablet 40 mg (2 x 20 mg) PO DAILY 5 days 08/14/24 #10 tabs Allergies Allergy/AdvReac Type Severity Reaction Status Date / Time latex Allergy Intermediate RASH, Verified 08/14/24 08:17 BLISTERS codeine (CODEINE) Allergy Mild Other Verified 08/14/24 08:17 strawberry Allergy Other Verified 08/14/24 08:17 mold Allergy Intermediate Sneezing Uncoded 01/26/24 15:34 [facility] Disclaimer: The information contained in this section may have been updated after the patient was seen, as this information can be updated by other users. Medical History Seasonal allergies Acute bronchitis Acute upper respiratory infection Acute conjunctivitis of left eye Pharyngitis Influenza Strep throat Nausea & vomiting Close exposure to COVID-19 virus Vasomotor symptoms due to menopause Influenza A Abrasion of knee Surgical History History of section H/O: hysterectomy [place] teeth extracted History of hysterectomy with bilateral oophorectomy Family History Mother Hypertension Grandmother Cancer Breast Social History Smoking Status: Former smoker years smoked: 5 smoking status stop date: 1997 alcohol intake: never substance use type: denies use current occupational status: employed Travel in the last 8 weeks: None household members: family housing: house Have you lived/traveled outside US in past 30 days?: No Contact w/someone who lives/traveled outside US past 30 days?: No Exposure to someone with infectious disease in past 14 days?: No Do you have a fever (greater than 100.4 F or 38 C)?: No Have you tested positive for COVID-19: No Exposed to someone with COVID-19 in past 14 days?: No Do you have a sore throat?: No Do you have a cough?: No Do you have any weakness?: No Do you have any diarrhea?: No Are you experiencing any unusual bleeding?: No Do you have any muscle aches/pain?: No Do you have any abdominal pain?: No Are you experiencing loss of taste or smell?: No Other Medical History Have you received the Flu Vaccine for this season: No Have you received the Pneumonia Vaccine: No ROS Obtained: Yes All systems reviewed & no additional complaints except as documented Physical Exam General General appearance: alert Comment: Intermittently having spasms of pain Head Head exam: atraumatic and normocephalic Eye Eye exam: Present normal appearance, PERRL and EOMI Neck Neck exam: Present normal inspection, full ROM and trachea midline Respiratory Respiratory exam: Present normal lung sounds bilaterally; Absent respiratory distress, wheezes, stridor, accessory muscle use or prolonged expiratory phase Cardiovascular Cardiovascular exam: Present regular rate, normal rhythm and other (Pulses equal symmetric in upper and lower extremities) Abdominal Exam Abdominal exam: Present soft; Absent distention, tenderness or pulsatile mass Extremities Exam Extremities exam: Absent edema Back Exam Back exam: Present tenderness (Left-sided paraspinal tenderness in thoracic spine around insertion site of trapezius as well as rhomboids. No midline spinal tenderness. Compression causes exacerbation of symptoms radiating around under left axilla) Neurological Exam Neurological exam: Present alert, oriented X3 and CN II-XII intact; Absent motor sensory deficit Skin Skin exam: Present warm and dry; Absent diaphoresis or erythema Medical Decision Making Medical Records Medical records reviewed: Yes I reviewed the patient's medical records. Screening: Per USPSTF and CDC recommendations, given the prevalence of disease in our region, it is our hospital?s policy to screen for HIV and viral Hepatitis for all patients aged 18 and over and those with ongoing risk factors. Gold Inquiry Pt receiving controlled substance: No Gold was queried for this patient: No Vital Signs: 08/14/24 08:14 08/14/24 08:17 08/14/24 08:45 Temperature 97.7 F Temperature Source Oral Pulse Rate 67 72 Pulse Rate [Left Radial] 78 Respiratory Rate 13 Blood Pressure 153/61 H 138/89 Blood Pressure [Right Arm] 153/61 H Blood Pressure Mean [Right Arm] 91 02 Sat by Pulse Oximetry 98 97 100 Oxygen Delivery Method Room Air Room Air Room Air 08/14/24 09:31 Temperature Temperature Source Pulse Rate 76 Pulse Rate [Left Radial] Respiratory Rate Blood Pressure 144/96 H Blood Pressure [Right Arm] Blood Pressure Mean [Right Arm] 02 Sat by Pulse Oximetry 99 Oxygen Delivery Method Room Air Orders (Tests/Meds): ED MEDICATIONS Discontinued Medications Generic Name Dose Route Start Last Admin Trade Name Eloisa PRN Reason Stop Dose Admin Diazepam 5 mg 08/14/24 09:25 08/14/24 09:30 Diazepam 5mg Tablet PO 08/14/24 09:26 5 mg ONCE ONE Administration Ketorolac Tromethamine 15 mg 08/14/24 09:25 08/14/24 09:30 Ketorolac 30mg/Ml Vial IM 08/14/24 09:26 15 mg ONCE ONE Administration Lidocaine 1 each 08/14/24 08:24 08/14/24 08:46 Lidocaine 5% Transdermal Patch TP 08/14/24 08:25 1 each ONCE ONE Administration Methocarbamol 1,500 mg 08/14/24 08:24 08/14/24 08:45 Methocarbamol 500mg Tablet PO 08/14/24 08:25 1,500 mg ONCE ONE Administration Prednisone 40 mg 08/14/24 08:24 08/14/24 08:45 Prednisone 20mg Tab PO 08/14/24 08:25 40 mg ONCE ONE Administration ORDERS Category Date Time Status HIV Combo Stat Lab 08/14/24 08:22 Ordered Hepatitis C Ab Qual. W/ RFX Stat Lab 08/14/24 08:22 Ordered Medical Decision Narrative: This is a 49-year-old female presenting with back pain. She states that she went to chiropractor yesterday, 08/13 and had lumbosacral spine manipulated. Not having any pain in her thoracic spine until this morning. She woke up totally fine, was putting her bra on just before arrival and while putting her bra on she had a sharp pain arise left mid back. States that it similar to when she tore her trapezius muscle on the right a few years ago while putting her treadmill away. No shortness of breath, nausea, vomiting. Pain is not pleuritic or respirophasic. States it is made worse with motion and intermittently causing spasms, also intermittently flares up on its own. Mild intensity, severe in intensity when flaring up 9 out of 10 and sharp/shooting. No lower extremity symptoms, bowel or bladder dysfunction, saddle anesthesia, etc. History was obtained via conversation with patient and . On arrival, patient hemodynamically stable, alert, oriented x4, appropriate, GCS 15, moving all extremities spontaneously, pupils equal and reactive to light. Full physical exam performed and significant for clinically well-appearing female no acute distress. Intermittently having spasms of pain. Lungs are clear, cardiac exam normal. No chest wall tenderness, she does have tenderness about paraspinal muscles on the left. Left-sided paraspinal tenderness in thoracic spine around insertion site of trapezius as well as rhomboids. No midline spinal tenderness. Compression causes exacerbation of symptoms radiating around under left axilla. Differential includes disc herniation, radiculitis, radiculopathy, muscle spasm, sprain, strain, intercostal muscle injury, among others. Pneumothorax considered, but patient having no respirophasic chest pain, normal saturation, bilateral breath sounds are symmetric and patient no acute respiratory distress. PE also considered, patient not tachypneic, no DVT or PE risk factors. Dissection also considered, unlikely. No neurologic deficits. Normal cardiac exam, no cardiac risk factors. Patient placed on continuous cardiac monitoring and continuous pulse ox with initial blood pressure 153/61, heart rate 67, saturation 98% on room air. Patient was given lidocaine patch, Robaxin, prednisone for symptomatic management and correction of underlying abnormalities. I consider doing chest x-ray, but I feel this would be unlikely to demonstrate any clinically relevant information as patient has no cardiopulmonary complaints and tenderness about muscle bodies posteriorly on the left paraspinal muscles. Also consider doing labs, but acute, atraumatic, normal vital signs, and intermittent pain. I do not feel these would add anything for the workup. On reevaluation, patient having intermittent continued spasms. She was given Toradol IM and p.o. Valium for this. On reevaluation shortly thereafter, patient states she is feeling much better, no longer acting as if she is in pain, looks more clinically improved. Given patient presentation, workup, history, this most likely represents acute muscle spasm versus atraumatic injury to trapezius versus other paraspinal muscle. Because patient at baseline without signs or symptoms of clinical decompensation, deemed appropriate for discharge. Results were relayed to patient who voiced understanding and were agreeable to outpatient management and follow up. I discussed my clinical impression with patient and answered all questions. At this time, the evidence for any other entities in the differential is insufficient to warrant any further testing or ED observation. This was explained as well. Advisory was given that persistent or worsening symptoms require further evaluation. I confirmed the understanding of this discussion. [employer] disclaimer Much of this encounter note is an electronic inspector screen printing spoken language to printed text. Electronic inspector screen printing of the spoken language may permit errors. Although I have reviewed the note, some errors may still exist. Critical Care Critical Care Time Critical Care Time: No
[2024-08-14 08:45] VITALS: BP 138/89; PULSE 72; O2SAT 100
[2024-08-14] MEDS: METHOCARBAMOL 500MG TABLET 1500 MG PO (08:45)
[2024-08-14] MEDS: predniSONE 20MG TAB 40 MG PO (08:45)
[2024-08-14] MEDS: LIDOCAINE 5% TRANSDERMAL PATCH 1 EACH TP (08:46)
[2024-08-14] MEDS: KETOROLAC 30MG/ML VIAL 15 MG IM (09:30)
[2024-08-14] MEDS: diazePAM 5MG TABLET 5 MG PO (09:30)
[2024-08-14 09:31] VITALS: BP 144/96; PULSE 76; O2SAT 99
--- NOTE | 2024-08-14 09:53 | PC.NURSE ---
Rounded on patient; pt sleeping in chair with spouse at BS. No other needs at this time
[2024-08-14 11:26] VITALS: BP 111/77; PULSE 67; RESP 15; TEMP 36.5; O2SAT 95
== END 2024-08-14 11:27 | disposition home or self-care (01) ==
PROVIDERS: Emergency Provider Emergency Medicine; PCP Nurse Practitioner Family
DX: M54.9 Dorsalgia, unspecified (principal); Z92.89 Personal history of other medical treatment
CPT/HCPCS: 96372; 99283; J1885

== ENCOUNTER 2024-08-22 14:52 | Outpatient (CLI) | payer BC, SELFPAY ==
--- NOTE | 2024-08-22 14:55 | XR_ITS ---
FINAL REPORT TECHNIQUE: Thoracic spine 2 views, lumbar spine 3 views CLINICAL HISTORY: low back pain..NO TRAUMA COMPARISON: None FINDINGS: THORACIC SPINE: AP, lateral, and swimmer's views of the thoracic spine were obtained. There is no prior exam for comparison. There is no acute fracture. Mild scoliosis is present. There is mild diffuse degenerative disc disease. Vertebral body height is preserved. Paraspinal soft tissues are within normal limits. IMPRESSION: Mild diffuse degenerative disc disease without acute bony abnormality. LUMBAR SPINE: AP and lateral views of the lumbar spine were obtained. There is no prior exam for comparison. There is no acute fracture or malalignment. Vertebral body height is preserved. There is mild diffuse degenerative change in the lumbar spine, most pronounced at the L2-3 level. No acute paraspinal abnormality. IMPRESSION: Mild diffuse degenerative change, most pronounced at the L2-3 level, without acute bony abnormality. Reviewed, Interpreted and Dictated by Linda Escobar MD Transcribed by Breanna Cox Authenticated and [facility]
== END 2024-08-22 23:59 | disposition home or self-care (01) ==
LOC: RAD 14:53
PROVIDERS: PCP Nurse Practitioner Family; Visit Provider Nurse Practitioner Family
DX: M54.6 Pain in thoracic spine (principal)
CPT/HCPCS: 72084

== ENCOUNTER 2024-08-29 15:41 | Outpatient (RCR) | payer BC, SELFPAY ==
--- NOTE | 2024-08-29 18:15 | HMH.PTOPEV ---
PT Outpatient Evaluation Rehab PT Outpatient Evaluation Start: 08/29/24 15:45 Freq: Status: Active Protocol: Document 08/29/24 15:45 TAMIKO (Rec: 08/29/24 18:15 TAMIKO [id number]) E-signed By Merry Candelaria, PT Outpatient Therapy Subjective History Subjective History Pt is a 49 y/o female with complaint of left-sided mid back and right-sided low back pain. Pt reports recent onset of L mid back pain ~2 weeks ago with onset after donning her bra overhead the day following a chiropractic adjustment. Pt reports she experienced intense muscle spasms later that day and went to the ED to rule out a heart attack. Pt reports she was diagnosed with a muscle strain and prescribed prednisone and muscle relaxers which have improved her symptoms since onset although pain still persists. Pt reports history of chronic right-sided low back pain with referral into the posterolateral hip. Pt also reports history of 3 occurrences of radicular symptoms down the right leg to her foot with most recent episode in May of 2024. 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 Pt reports overall symptoms are aggravated by bending/lifting, sneezing/coughing, prolonged standing such as to do mold cooler, sitting with her legs crossed and getting in/out of the car. Pt states she feels she has to be cautious with a lot of movements to avoid a flare up of symptoms. Pt reports symptoms improve with walking. Pt denies pain with or difficulty breathing. Pt denies b/b dysfunction. Pt had radiographs of the thoracic and lumbar spine performed on 08/22/24 with impression of Mild diffuse degenerative disc disease without acute bony abnormality and Mild diffuse degenerative change, most pronounced at the L2-3 level, without acute bony abnormality respectfully. Occupation: Director [employer] Medical History: Seasonal allergies New diagnosis of cancer in past 12 No months? Chief Complaint Pain Symptom Type Ache,Sharp,Dull Symptoms Relieved By Rest/Positioning,Heat,Ice, Prescription Meds Symptoms Aggravated By Standing,Bending/Stooping, Physical Activity,Lifting, Sneeze/Coughing Current Functional Limitations Lifting,Housework,Standing, Recreation Activity,Bending/ Stooping Symptom Description Intermittent Level of pain today (0-10) 4 Pain scale - at its best (0-10) 0 Pain scale - at its worst (0-10) 5 Lumbopelvic Eval Posture Thoracic Spine Posture Standing Position Flexible Scoliosis on (R) Lumbar Spine Posture Standing Position Decreased Lordosis,Flexible Scoliosis on (L) Assistive device Assistive Devices None / NA Palapation tenderness bilateral lumbar spinal tenderness Yes: L4-5, L5-S1 paraspinal tenderness Yes: L mid thoracic PS buttock tenderness Yes: R glute med/min, piriformis Lumbar/Sacral Palpation Findings Tenderness Lumbar/Sacral Palpation Overall Comment 2-3/4 TTP Accessory Movement L-spine Vertebrae Accessory Movements Central P/A [place] that [place] Symptoms L4 bilateral L5 bilateral S1 bilateral Range of Motion Lumbar Spine Active Flexion Range of 80 Motion (degrees) Lumbar Spine Active Extension Range of 20 Motion (degrees) Left Lumbar Spine Lateral Flexion Active 5 Range of Motion (degrees) Right Lumbar Spine Lateral Flexion 5 Active Range of Motion (degrees) Manual Muscle Test Bilateral Knee Extension Strength Grade 5 Normal Knee Flexion Strength Grade 5 Normal Hip Flexion Strength Grade 4- Good- Hip Abduction Strength Grade 4- Good- Hip Adduction Strength Grade 4- Good- Hip Extension Strength Grade 4- Good- Ankle Dorsiflexion Strength Grade 5 Normal DTR Rt Patellar 2+ Lt Patellar 2+ Rt Gastroc/Soleus 2+ Lt Gastroc/Soleus 2+ Altered Sensation Bilateral Comment equal and intact to light touch sensation bilaterally Special Tests Hip David (BALDEV) Test Negative Left,Negative Right Hip Piriformis Test Negative Left,Negative Right Sciatic Nerve Tension Test Negative Left,Negative Right Unilateral Straight Leg Raise (Lasegue) Positive Right Test Oswestry Index Section 1 Pain Intensity The pain comes and goes and is severe Section 2 Personal Care (Washing,Dresing) increase the pain and I find it necessary to change my way of doing it Section 3 Lifting lifting heavy weights off the floor, but I can manage light to medium Section 4 Walking I have some pain when walking but it does not increase with distance Section 5 Sitting Pain prevents me from sitting for more than 1/2 hour Section 6 Standing I cannot stand more than 1/2 hour without increasing pain Section 7 Sleeping I get pain in bed, but it does not prevent me from sleeping well Section 8 Social Life My social life is normal and gives me no extra pain Section 9 Traveling I get extra pain while traveling, but it does not compel me to seek al Section 10 Changing Degreee of Pain My pain is neither getting better or worse Score and Risk Level Oswestry Sc 24 Oswestry Risk Level Moderate Disability Outpatient Therapy Assessment Impairments Problems/Impairmments Palpation Tenderness,Impaired Range of Motion,Impaired Strength,Impaired Walking, Impaired Standing,Impaired Sitting,Impaired Lifting, Impaired Household Care, Impaired Bending,Subjective C/ O Pain,Impaired Self Care/Self Management Prognosis Rehab Potential Good Clinical Impression Consistent with Diagnosis Yes Short Term Goals Number of Weeks 2 Increase Range of Motion Yes: Improve lumbar AROM LF to at least 10 B Improve Oswestry Score Yes Improve Self Care/Self Management Yes Patient to be Ind w/ HEP Yes Usp Goals Number of Weeks 4-6 Decreased Palpation Tenderness Yes: 0-1/4 TTP of L thoracic PS, R gluteal mm, L4-5, L5-S1 Increase Range of Motion Yes: Improve lumbar AROM to WNL Increase Strength Yes: Improve LE/core strength to 4-4+/5 grossly to assist with function Improve Transfers Yes: report ability to get in/ out of car with pain 3/10 or less Restore Ability to Lift Objects to Waist Yes: demonstrate proper Level lifting mechanics to prevent re-injury Improve Ability For Household Care Yes: with pain 3/10 or less Improve Oswestry Score Yes: Improve score to 19 or less to improve overall QOL Decrease Subjective C/O Pain Yes: Improve pain at worst to 3/10 to improve overall QOL Outpatient Therapy Plan of Care Treatment Plan May Include Therapeutic Exercise Including Home Yes Exercise Program Manual Therapy Techniques Yes Neuromuscular Re-education Yes Therapeutic Activities to Return to Yes Previous Functional/Work Level ADL/Self Care Education Yes Mechanical Traction Yes Dry Needling Yes Thermal Modalities Yes Electrical Stimulation Yes Ultrasound/Phonophoresis Yes Iontophoresis Yes Massage Yes Eval/Re-Eval Yes Frequency Times per week 2 Duration Number of Weeks 4-6 Addendums This patient is a candidate for social No or vocational rehab? Patient/Guardian verbally acknowledges Yes understanding of treatment program and consents to further treatment? Patient/Guardian verbally acknowledges Yes understanding of diagnosis, prognosis and goals for treatment? Eval Complexity PT Charges 61427 - Low Complexity Shoulder/Elbow Eval Shoulder Objective Measurements Elbow Objective Measurements PHYSICIAN CERTIFICATION: I certify the specified therapy services for May Velázquez are required, authorized, and reviewed every 30 days.
== END 2024-08-29 23:59 | disposition home or self-care (01) ==
LOC: PT 15:41
PROVIDERS: Visit Provider Nurse Practitioner Family
DX: M54.6 Pain in thoracic spine (principal); M54.50 Low back pain, unspecified
CPT/HCPCS: 97163

== ENCOUNTER 2024-09-26 16:00 | Outpatient (RCR) | payer BC, SELFPAY ==
--- NOTE | 2024-09-26 17:08 | HMH.RHREAS ---
Rehab Reassessment Rehab OP Re-assessment Start: 09/10/24 10:57 Freq: Status: Active Protocol: Document 09/26/24 16:44 TREVONHOLGER (Rec: 09/26/24 17:07 [email or web address] [id number]) E-signed By Merry Candelaria, PT Oswestry Index Section 1 Pain Intensity The pain is mild and does not vary much Section 2 Personal Care (Washing,Dresing) change my way of washing or dressing in order to avoid pain Section 3 Lifting I can lift heavy weights, but it gives me extra pain Section 4 Walking I have no pain when walking Section 5 Sitting I can sit in any chair for as long as I like Section 6 Standing I can stand as long as I want without pain Section 7 Sleeping I get no pain in bed Section 8 Social Life My social life is normal and gives me no extra pain Section 9 Traveling I get some pain when traveling , but none of my usual forms of travel m Section 10 Changing Degreee of Pain My pain is getting better Score and Risk Level Oswestry Sc 3 Oswestry Risk Level No Disability Rehab Re-assessment Subjective Subjective Pt reports she feels 85% improved since starting PT. Pt reports only mild 1/10 back pain at worst within the last week that typically occurs when driving or prolonged standing all day and improves with movement. Pt reports she is now able to transfer in/out of the car and perform housework without pain/ difficulty. Pt reports compliance with HEP that she states has helped a lot. Objective Objective Notes Palpation: 1/4 TTP of thoracic paraspinals, 0/4 TTP of lumbar spine or gluteal mm Lumbar AROM: 85, ext 20, LF 15 BLE MMT: 4+/5 grossly Assessment Progress Assessment Progressing as Expected Assessment Notes Pt has attended 6 PT treatment sessions consisting of aerobic exercise, thoracolumbar mobility, lumbar extension based program, LE/ core strengthening, modalities and HEP with good tolerance. Pt demonstrated improved subjective report of pain, ELVIA score, lumbar mobility, and LE strength this date compared to the initial evaluation. Overall, the pt met all PT goals and is appropriate to discharge to [facility] at this time. Patient goals met ST/4 LT8 Goals Not Met n/a Revised Goals n/a Plan Plan Discharge to [facility] Time and Billing Re-Eval Time 10 Re-Eval Billing Units 0 Charge for PT reassessment? No Charge for OT reassessment? No PHYSICIAN CERTIFICATION: I certify the specified therapy services for May Velázquez are required, authorized, and reviewed every 30 days.
== END 2024-09-26 23:59 | disposition home or self-care (01) ==
LOC: PT 16:00
PROVIDERS: Visit Provider Nurse Practitioner Family
DX: M54.6 Pain in thoracic spine (principal); M54.50 Low back pain, unspecified
CPT/HCPCS: 97110